=== PATIENT | male | born 1990 | race Caucasian/White ===

== ENCOUNTER 2020-03-09 20:53 | Emergency (ER) | payer OTHER, SELFPAY ==
--- NOTE | 2020-03-09 21:23 | XR_ITS ---
EXAMINATION: XR CHEST CLINICAL INFORMATION: Fever COMPARISON: 04/18/2018 TECHNIQUE: Frontal view of the chest was obtained. FINDINGS: The cardiomediastinal silhouette is within normal limits. The lungs are well expanded. There is no focal consolidation, edema, or effusion. No pneumothorax. No acute osseous abnormality. XR/XR chest 1V IMPRESSION: No evidence of acute pulmonary process.
--- NOTE | 2020-03-09 21:31 | CT_ITS ---
EXAM: NONCONTRAST CT OF THE CHEST; NONCONTRAST CT OF THE ABDOMEN AND PELVIS INDICATION: Fever, cough, upper abdominal pain COMPARISON: Chest CT 06/28/2019 TECHNIQUE: No IV contrast was utilized. Multidetector helical imaging was performed through the chest, abdomen, and pelvis. Coronal and sagittal reformatted images were created at the technologist workstation. DOSE LOWERING TECHNIQUES: This CT examination was performed using dose optimization techniques as appropriate, variously including the following: - Automated exposure control - Adjustment of mA and/or kV according to patient size (this includes techniques or standardized protocols for targeted exams were dose is matched to indication/reason for exam; i.e. extremities or head) - Use of iterative reconstruction technique DLP: 819 mGy-cm FINDINGS: Chest: No regions of consolidation bilaterally. There is trace subsegmental atelectasis bilaterally. No pneumothorax or pleural effusion. The visualized thyroid gland is unremarkable. There are subcentimeter mediastinal lymph nodes within the range of normal variation. Cardiac size is within normal limits; no pericardial effusion. No axillary lymphadenopathy is present. Abdomen/Pelvis: The liver demonstrates hypoattenuation consistent with steatosis. No intrahepatic biliary ductal dilatation. The gallbladder is contracted. The unenhanced spleen, pancreas, and adrenal glands are within normal limits. The unenhanced kidneys are unremarkable without hydronephrosis. Few punctate renal calculi are noted bilaterally. No ureteral calculi identified. The urinary bladder is unremarkable. The prostate and seminal vesicles are unremarkable. The small and large bowel are unremarkable without evidence of obstruction or pericolonic inflammatory change. The appendix is unremarkable. No free fluid or free air is present. The unenhanced vascular structures are unremarkable. No retroperitoneal or pelvic lymphadenopathy is seen. No acute osseous findings. CT/CT abdomen pelvis wo con IMPRESSION: 1. No acute findings identified in the chest, abdomen, or pelvis. 2. Hepatomegaly. 3. Few tiny bilateral renal calculi without hydronephrosis.
[2020-03-09 21:37] VITALS: BP 115/88; PULSE 122; RESP 18; TEMP 38.8; O2SAT 98; BMI 26.4
[2020-03-09] MEDS: Acetaminophen 325 MG TABLET 650 MG PO (21:50)
[2020-03-09 22:00] VITALS: PULSE 95; O2SAT 97
[2020-03-09] MEDS: 0.9 % Sodium Chloride 1,000 ML 999 ML IVCONT (22:08)
[2020-03-09 22:20] LABS: MANUAL DIFF FLAG NO
[2020-03-09 22:21] LABS: Basophils Percent Auto 0.4 % (0-2); Eosinophils Absolute Auto 0.2 X10*3/uL (0.0-0.4); Eosinophils Percent Auto 3.1 % (0-4); Hematocrit 49.3 % (42-52); Imm Gran Abs Auto 0.02 X10*3/uL (0.00-0.03); Imm Gran Pct Auto 0.4 % (0.0-0.4); Lymphocytes Absolute Auto 1.6 X10*3/uL (1.2-4.9); Lymphocytes Percent Auto 30.7 % (20-40); Mean Corpuscular HGB Conc 34.5 g/dl (31.0-36.0); Mean Corpuscular Hemoglobin 28.9 pg (27.0-33.0); Mean Corpuscular Volume 83.7 fL (80-98); Mean Platelet Volume 9.9 fL (9.4-12.4); Monocytes Absolute Auto 0.5 X10*3/uL (0.1-1.2); Monocytes Percent Auto 9.2 % (2-11); Neutrophils Percent Auto 56.2 % (45-73); Platelet Count 165 X10*3/uL (160-400); Red Blood Count 5.89 X10*6/uL (4.60-5.80); White Blood Count 5.2 X10*3/uL (4.8-10.8)
[2020-03-09 22:23] LABS: Glucose Urine UA NEG (NEG); Leukocyte Esterase Urine NEG (NEG); Nitrite Urine NEG (NEG); Specific Gravity - Urine >= 1.030 (1.005-1.025); Urine Blood TRACE (NEG); Urine Ketones NEG (NEG); Urine Protein NEG (NEG-TRACE)
[2020-03-09 22:29] LABS: Appearance Urine CLEAR; Color Urine YELLOW
[2020-03-09] MEDS: cefTRIAXone sodium 1 GM in 0.9 % Sodium Chloride 50 ML IV (22:30)
[2020-03-09 22:33] LABS: Lactic Acid 1.9 mmol/L (0.5-2.0)
[2020-03-09 22:37] LABS: Alanine Aminotransferase 65 U/L (0-40); Albumin Level 4.5 g/dL (3.5-5.0); Alkaline Phosphatase 106 U/L (39-117); Anion Gap 17 (12-20); Aspartate Amino Transferase 56 U/L (5-37); Bilirubin Direct 0.3 mg/dL (0.0-0.5); Bilirubin Total 0.6 mg/dL (0.0-1.0); Blood Urea Nitrogen 8 mg/dL (9-16); C Reactive Protein 4.15 mg/dL (< or = 0.50); Carbon Dioxide 26 mmol/L (22-29); Chloride 101 mmol/L (96-108); Creatinine Clr Calc Pharmacy 94.6; Estimated Glomerular Filt Rate > 60; Glucose Random 99 mg/dL (60-115); Potassium 3.6 mmol/l (3.3-5.1); Sodium 140 mmol/L (135-145); Total Protein 7.8 g/dL (6.5-8.0)
[2020-03-09 22:38] LABS: Bacteria Urine 1+ /LPF; Mucus Urine 1+ /LPF; RBC Urine 0-2 /HPF (0); Squamous Epithelial Cell Urine 1+ /LPF; WBC Urine 0-2 /HPF (0-4)
[2020-03-09 22:49] LABS: Influenza A PCR NEGATIVE (Negative); Influenza B PCR NEGATIVE (Negative); Resp Syncy Virus RNA Qual PCR NEGATIVE (Negative); SARS COV2 PCR INHOUSE NEGATIVE (Negative)
[2020-03-09 23:02] LABS: Erythrocyte Sedimentation Rate 3 MM/HR (0-15)
--- NOTE | 2020-03-09 23:11 | ED_ITS ---
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 Patient was seen at urgent care center and had 3 times COVID test done which were negative in last 1 week but is still not feeling good. Last night patient had fever of 102 degrees F with shaking chills. Patient has slight burning sensation when he urinates, has mild upper abdominal pain no flank pain no other family member is sick at home. Patient denies any rash no shortness of breath MD elicited complaint: fever, malaise and weakness Onset (ago): week(s) (1) Exacerbating factors: nothing Relieving factors: nothing Associated symptoms: chills, myalgias, cough ( mild dry) and abdominal pain ( mild upper abdomen) Treatments prior to arrival fever: acetaminophen Related Data Previous Rx's Medication Instructions Recorded doxycycline hyclate 100 mg PO BID #20 cap 03/10/20 Allergies Allergy/AdvReac Type Severity Reaction Status Date / Time Iodinated Contrast Media Allergy Unknown UNKNOWN Verified 03/09/20 20:56 [IV CONTRAST] Sulfa (Sulfonamide Allergy Unknown DIARRHEA Verified 03/09/20 20:56 Antibiotics) [SULFA (SULFONAMIDE ANTIBIOTICS)] Sulfa Allergy Unknown Unknown Uncoded 03/09/20 20:56 sulfa drugs Allergy Unknown Unknown Uncoded 03/09/20 20:56 Review of Systems Constitutional: Constitutional: Reports body ache(s), Reports chills, Reports fatigue, Reports fever(s), Reports headache(s), Reports lethargy and Reports weakness Eyes: Eyes: Reports irritation ENT: Reports otalgia ( left ear slight pain) and Reports headache(s) Cardiovascular: Cardiovascular: Reports no additional cardiovascular complaints and Denies dyspnea Respiratory: Respiratory: Reports cough ( dry), Denies pain with cough and Denies dyspnea Gastrointestinal: Gastrointestinal: Reports abdominal pain, Denies melena, Denies change in bowel habits and Reports GI cramping Genitourinary: Genitourinary: Denies hematuria and Denies difficulty urinating Musculoskeletal: Musculoskeletal: Reports myalgias Neurologic: Reports system reviewed and no additional complaints, except as documented, Reports headache(s) and Reports weakness Endocrine: Endocrine: Reports fatigue [facility] Past Medical History Medical History Sarcoidosis Social History Social History Alcohol intake: never Smoking Status: Never smoker Smoked in Last 30 Days: No Use of substances other than those prescribed or required for medical reasons: No Advance Directives: No Advance Directives Information Provided: Yes Physical Exam Vital Signs: Vital Signs: Last Vital Signs Temp 99.1 F 03/10/20 02:00 Pulse 95 03/10/20 02:00 Resp 18 03/10/20 02:00 BP 118/69 03/10/20 02:00 Pulse Ox 97 03/10/20 02:00 Body Mass Index 26.4 Const: General: cooperative, healthy appearing, no acute distress, well developed, alert and awake Nutritional Appearance: average body habitus Orientation/consciousness: oriented to person, oriented to place and oriented to time Limitations: no limitations HENMT: Head: Yes normal to inspection Ears: EAC's normal, mastoids normal and TM abnormal erythematous on the left; not bulging, not bullous, not dull, not with effusion, with no fluid behind the TM and with no loss of landmarks Eyes: General: appearance normal, both eyes and all related structures Conjunctivae: conjunctivae normal Sclerae: sclerae normal Neck: Neck: Yes normal visual inspection Thyroid: Thyroid normal Lymphatic: lymphadenopathy ( left preauricular) Resp: Effort & Inspection: normal respiratory effort Auscultation: clear to auscultation bilaterally, no crackles, no rales, no rhonchi and no wheezes Cardio: Palpation: normal PMI Rate: regular rate Rhythm: regular rhythm Heart sounds: S1 normal heart sound present and S2 normal heart sound present GI: Inspection: Yes normal to inspection Palpation (GI): Soft to palpation, Firmness to palpation present (GI), Tenderness to palpation present (GI) in the epigastrum and in the RUQ and no hernias Percussion: Yes normal to percussion Auscultation: normal bowel sounds : General: Yes no CVA tenderness Back/Spine/Pelvis: Back: no CVA tenderness Thoracic/Lumbar Spine: thoracic and lumbar spine normal to inspection Skin: General skin exam: no rashes or lesions noted Neuro: General: oriented to person, oriented to place and oriented to time Motor exam (neuro): 5/5 motor strength present throughout Extrem: General: Yes normal to inspection Course Course Course Narrative: patient with fever of unknown origin detail workup is negative including the COVID-[address] abdomen CT white counts are normal patient did complain of headache did the LP CSF is clear labs are pending. Will send respiratory panel and meningitis panel Procedures Lumbar Puncture Time Out Performed: Yes Patient Position: upright Skin Prep: Povidone-Iodine 1% Local Anesthetic: lidocaine 1% Spinal Needle Gauge: 22G Interspace Used: L3-L4 Fluid Initially Obtained: clear Complications: none MDM - Fever Lab Data Result diagrams: 03/09/20 22:06 03/09/20 22:06 Labs: Lab Results 03/09/20 03/09/20 03/09/20 Range/Units 21:57 21:59 22:06 WBC 5.2 (4.8-10.8) X10*3/uL RBC 5.89 H (4.60-5.80) X10*6/uL Hgb 17.0 (14.0-18.0) g/dl Hct 49.3 (42-52) % MCV 83.7 (80-98) fL MCH 28.9 (27.0-33.0) pg MCHC 34.5 (31.0-36.0) g/dl RDW 13.0 (11.0-16.0) % Plt Count 165 (160-400) X10*3/uL MPV 9.9 (9.4-12.4) fL Immature Gran % (Auto) 0.4 (0.0-0.4) % Neut % (Auto) 56.2 (45-73) % Lymph % (Auto) 30.7 (20-40) % [place] % (Auto) 9.2 (2-11) % Eos % (Auto) 3.1 (0-4) % Baso % (Auto) 0.4 (0-2) % Lymph # (Auto) 1.6 (1.2-4.9) X10*3/uL [place] # (Auto) 0.5 (0.1-1.2) X10*3/uL Eos # (Auto) 0.2 (0.0-0.4) X10*3/uL Baso # (Auto) 0.0 (0.0-0.2) X10*3/uL Abs Immat Gran (auto) 0.02 (0.00-0.03) X10*3/uL Absolute Neuts (auto) 3.0 (2.0-8.3) X10*3/uL Absolute Nucleated RBC 0.000 (0.0-0.012) X10*3/uL Nucleated RBC % (auto) 0.0 (0.0-0.2) /100WBC ESR (0-15) MM/HR Sodium (135-145) mmol/L Potassium (3.3-5.1) mmol/l Chloride (96-108) mmol/L Carbon Dioxide (22-29) mmol/L Anion Gap (12-20) BUN (9-16) mg/dL Creatinine (0.5-1.4) mg/dL Estim Creat Clear Calc Estimated GFR Random Glucose (60-115) mg/dL Lactic Acid (0.5-2.0) mmol/L Calcium (8.4-10.2) mg/dL Total Bilirubin (0.0-1.0) mg/dL Direct Bilirubin (0.0-0.5) mg/dL AST (5-37) U/L ALT (0-40) U/L Alkaline Phosphatase (39-117) U/L C-Reactive Protein (< or = 0.50) mg/dL Total Protein (6.5-8.0) g/dL Albumin (3.5-5.0) g/dL Urine Color YELLOW Urine Appearance CLEAR Urine pH 6.0 (5.0-8.0) Ur Specific [place] >= 1.030 H (1.005-1.025) Urine Protein NEG (NEG-TRACE) MG/DL Urine Glucose (UA) NEG (NEG) MG/DL Urine Ketones NEG (NEG) MG/DL Urine Blood TRACE (NEG) Urine Nitrite NEG (NEG) Ur Leukocyte Esterase NEG (NEG) Urine RBC 0-2 (0) /HPF Urine WBC 0-2 (0-4) /HPF Ur Squamous Epith Cells 1+ /LPF Urine Bacteria 1+ /LPF Urine Mucus 1+ /LPF CSF Tube Number CSF Volume ML CSF Appearance CSF Color CSF WBC MM*3 CSF RBC MM*3 CSF Neutrophils % CSF Lymphocytes % CSF Monocytes % % CSF Other Cells % % CSF Appearance (b) CSF Glucose mg/dL CSF Total Protein (15-45) mg/dL CSF Mening/Enceph PCR Respiratory Panel Jc Adenovirus (Rapid PCR) (Not Detect.) B.pert (TEM-PCR) (Not Detect.) B.parapertussis DNA PCR (Not Detect.) C. pneumoniae DNA (PCR) (Not Detect.) Coronavirus (PCR) NEGATIVE (Negative) Coronavirus OC43 (PCR) (Not Detect.) Coronavirus HKU1 (PCR) (Not Detect.) Coronavirus 229E (PCR) (Not Detect.) Coronavirus NL63 (PCR) (Not Detect.) Human Metapneumovir PCR (Not Detect.) Influenza A (RT-PCR) (Not Detect.) Influenza Type A (PCR) NEGATIVE (Negative) Influenza B (RT-PCR) (Not Detect.) Influenza Type B (PCR) NEGATIVE (Negative) M. pneumoniae (PCR) (Not Detect.) Parainfluenza 1 (PCR) (Not Detect.) Parainfluenza 2 (PCR) (Not Detect.) Parainfluenza 3 (PCR) (Not Detect.) Parainfluenza 4 (PCR) (Not Detect.) RSV (PCR) (Not Detect.) RSV RNA Qual (PCR) NEGATIVE (Negative) Entero/Rhino (PCR) (Not Detect.) SARS-CoV-2 RNA (RT-PCR) (Not Detect.) 03/09/20 03/09/20 03/09/20 Range/Units 22:06 22:06 22:06 WBC (4.8-10.8) X10*3/uL RBC (4.60-5.80) X10*6/uL Hgb (14.0-18.0) g/dl Hct (42-52) % MCV (80-98) fL MCH (27.0-33.0) pg MCHC (31.0-36.0) g/dl RDW (11.0-16.0) % Plt Count (160-400) X10*3/uL MPV (9.4-12.4) fL Immature Gran % (Auto) (0.0-0.4) % Neut % (Auto) (45-73) % Lymph % (Auto) (20-40) % [place] % (Auto) (2-11) % Eos % (Auto) (0-4) % Baso % (Auto) (0-2) % Lymph # (Auto) (1.2-4.9) X10*3/uL [place] # (Auto) (0.1-1.2) X10*3/uL Eos # (Auto) (0.0-0.4) X10*3/uL Baso # (Auto) (0.0-0.2) X10*3/uL Abs Immat Gran (auto) (0.00-0.03) X10*3/uL Absolute Neuts (auto) (2.0-8.3) X10*3/uL Absolute Nucleated RBC (0.0-0.012) X10*3/uL Nucleated RBC % (auto) (0.0-0.2) /100WBC ESR 3 (0-15) MM/HR Sodium 140 (135-145) mmol/L Potassium 3.6 (3.3-5.1) mmol/l Chloride 101 (96-108) mmol/L Carbon Dioxide 26 (22-29) mmol/L Anion Gap 17 (12-20) BUN 8 L (9-16) mg/dL Creatinine 1.12 (0.5-1.4) mg/dL Estim Creat Clear Calc 94.6 Estimated GFR > 60 Random Glucose 99 (60-115) mg/dL Lactic Acid 1.9 (0.5-2.0) mmol/L Calcium 9.0 (8.4-10.2) mg/dL Total Bilirubin 0.6 (0.0-1.0) mg/dL Direct Bilirubin 0.3 (0.0-0.5) mg/dL AST 56 H (5-37) U/L ALT 65 H (0-40) U/L Alkaline Phosphatase 106 (39-117) U/L C-Reactive Protein 4.15 H (< or = 0.50) mg/dL Total Protein 7.8 (6.5-8.0) g/dL Albumin 4.5 (3.5-5.0) g/dL Urine Color Urine Appearance Urine pH (5.0-8.0) Ur Specific [place] (1.005-1.025) Urine Protein (NEG-TRACE) MG/DL Urine Glucose (UA) (NEG) MG/DL Urine Ketones (NEG) MG/DL Urine Blood (NEG) Urine Nitrite (NEG) Ur Leukocyte Esterase (NEG) Urine RBC (0) /HPF Urine WBC (0-4) /HPF Ur Squamous Epith Cells /LPF Urine Bacteria /LPF Urine Mucus /LPF CSF Tube Number CSF Volume ML CSF Appearance CSF Color CSF WBC MM*3 CSF RBC MM*3 CSF Neutrophils % CSF Lymphocytes % CSF Monocytes % % CSF Other Cells % % CSF Appearance (b) CSF Glucose mg/dL CSF Total Protein (15-45) mg/dL CSF Mening/Enceph PCR Respiratory Panel Jc Adenovirus (Rapid PCR) (Not Detect.) B.pert (TEM-PCR) (Not Detect.) B.parapertussis DNA PCR (Not Detect.) C. pneumoniae DNA (PCR) (Not Detect.) Coronavirus (PCR) (Negative) Coronavirus OC43 (PCR) (Not Detect.) Coronavirus HKU1 (PCR) (Not Detect.) Coronavirus 229E (PCR) (Not Detect.) Coronavirus NL63 (PCR) (Not Detect.) Human Metapneumovir PCR (Not Detect.) Influenza A (RT-PCR) (Not Detect.) Influenza Type A (PCR) (Negative) Influenza B (RT-PCR) (Not Detect.) Influenza Type B (PCR) (Negative) M. pneumoniae (PCR) (Not Detect.) Parainfluenza 1 (PCR) (Not Detect.) Parainfluenza 2 (PCR) (Not Detect.) Parainfluenza 3 (PCR) (Not Detect.) Parainfluenza 4 (PCR) (Not Detect.) RSV (PCR) (Not Detect.) RSV RNA Qual (PCR) (Negative) Entero/Rhino (PCR) (Not Detect.) SARS-CoV-2 RNA (RT-PCR) (Not Detect.) 03/10/20 03/10/20 03/10/20 Range/Units 00:16 00:16 00:16 WBC (4.8-10.8) X10*3/uL RBC (4.60-5.80) X10*6/uL Hgb (14.0-18.0) g/dl Hct (42-52) % MCV (80-98) fL MCH (27.0-33.0) pg MCHC (31.0-36.0) g/dl RDW (11.0-16.0) % Plt Count (160-400) X10*3/uL MPV (9.4-12.4) fL Immature Gran % (Auto) (0.0-0.4) % Neut % (Auto) (45-73) % Lymph % (Auto) (20-40) % [place] % (Auto) (2-11) % Eos % (Auto) (0-4) % Baso % (Auto) (0-2) % Lymph # (Auto) (1.2-4.9) X10*3/uL [place] # (Auto) (0.1-1.2) X10*3/uL Eos # (Auto) (0.0-0.4) X10*3/uL Baso # (Auto) (0.0-0.2) X10*3/uL Abs Immat Gran (auto) (0.00-0.03) X10*3/uL Absolute Neuts (auto) (2.0-8.3) X10*3/uL Absolute Nucleated RBC (0.0-0.012) X10*3/uL Nucleated RBC % (auto) (0.0-0.2) /100WBC ESR (0-15) MM/HR Sodium (135-145) mmol/L Potassium (3.3-5.1) mmol/l Chloride (96-108) mmol/L Carbon Dioxide (22-29) mmol/L Anion Gap (12-20) BUN (9-16) mg/dL Creatinine (0.5-1.4) mg/dL Estim Creat Clear Calc Estimated GFR Random Glucose (60-115) mg/dL Lactic Acid (0.5-2.0) mmol/L Calcium (8.4-10.2) mg/dL Total Bilirubin (0.0-1.0) mg/dL Direct Bilirubin (0.0-0.5) mg/dL AST (5-37) U/L ALT (0-40) U/L Alkaline Phosphatase (39-117) U/L C-Reactive Protein (< or = 0.50) mg/dL Total Protein (6.5-8.0) g/dL Albumin (3.5-5.0) g/dL Urine Color Urine Appearance Urine pH (5.0-8.0) Ur Specific [place] (1.005-1.025) Urine Protein (NEG-TRACE) MG/DL Urine Glucose (UA) (NEG) MG/DL Urine Ketones (NEG) MG/DL Urine Blood (NEG) Urine Nitrite (NEG) Ur Leukocyte Esterase (NEG) Urine RBC (0) /HPF Urine WBC (0-4) /HPF Ur Squamous Epith Cells /LPF Urine Bacteria /LPF Urine Mucus /LPF CSF Tube Number 2 1 4 CSF Volume 0.8 0.8 ML CSF Appearance HAZY CLEAR CSF Color COLORLESS COLORLESS CSF WBC 6 4 MM*3 CSF RBC 1475 21 MM*3 CSF Neutrophils 16 7 % CSF Lymphocytes 56 60 % CSF Monocytes % 20 20 % CSF Other Cells % 8 13 % CSF Appearance (b) Clear, Colorless CSF Glucose 64 mg/dL CSF Total Protein 32.7 (15-45) mg/dL CSF Mening/Enceph PCR Cancelled Respiratory Panel Jc Adenovirus (Rapid PCR) (Not Detect.) B.pert (TEM-PCR) (Not Detect.) B.parapertussis DNA PCR (Not Detect.) C. pneumoniae DNA (PCR) (Not Detect.) Coronavirus (PCR) (Negative) Coronavirus OC43 (PCR) (Not Detect.) Coronavirus HKU1 (PCR) (Not Detect.) Coronavirus 229E (PCR) (Not Detect.) Coronavirus NL63 (PCR) (Not Detect.) Human Metapneumovir PCR (Not Detect.) Influenza A (RT-PCR) (Not Detect.) Influenza Type A (PCR) (Negative) Influenza B (RT-PCR) (Not Detect.) Influenza Type B (PCR) (Negative) M. pneumoniae (PCR) (Not Detect.) Parainfluenza 1 (PCR) (Not Detect.) Parainfluenza 2 (PCR) (Not Detect.) Parainfluenza 3 (PCR) (Not Detect.) Parainfluenza 4 (PCR) (Not Detect.) RSV (PCR) (Not Detect.) RSV RNA Qual (PCR) (Negative) Entero/Rhino (PCR) (Not Detect.) SARS-CoV-2 RNA (RT-PCR) (Not Detect.) 03/10/20 03/10/20 Range/Units 00:16 01:41 WBC (4.8-10.8) X10*3/uL RBC (4.60-5.80) X10*6/uL Hgb (14.0-18.0) g/dl Hct (42-52) % MCV (80-98) fL MCH (27.0-33.0) pg MCHC (31.0-36.0) g/dl RDW (11.0-16.0) % Plt Count (160-400) X10*3/uL MPV (9.4-12.4) fL Immature Gran % (Auto) (0.0-0.4) % Neut % (Auto) (45-73) % Lymph % (Auto) (20-40) % [place] % (Auto) (2-11) % Eos % (Auto) (0-4) % Baso % (Auto) (0-2) % Lymph # (Auto) (1.2-4.9) X10*3/uL [place] # (Auto) (0.1-1.2) X10*3/uL Eos # (Auto) (0.0-0.4) X10*3/uL Baso # (Auto) (0.0-0.2) X10*3/uL Abs Immat Gran (auto) (0.00-0.03) X10*3/uL Absolute Neuts (auto) (2.0-8.3) X10*3/uL Absolute Nucleated RBC (0.0-0.012) X10*3/uL Nucleated RBC % (auto) (0.0-0.2) /100WBC ESR (0-15) MM/HR Sodium (135-145) mmol/L Potassium (3.3-5.1) mmol/l Chloride (96-108) mmol/L Carbon Dioxide (22-29) mmol/L Anion Gap (12-20) BUN (9-16) mg/dL Creatinine (0.5-1.4) mg/dL Estim Creat Clear Calc Estimated GFR Random Glucose (60-115) mg/dL Lactic Acid (0.5-2.0) mmol/L Calcium (8.4-10.2) mg/dL Total Bilirubin (0.0-1.0) mg/dL Direct Bilirubin (0.0-0.5) mg/dL AST (5-37) U/L ALT (0-40) U/L Alkaline Phosphatase (39-117) U/L C-Reactive Protein (< or = 0.50) mg/dL Total Protein (6.5-8.0) g/dL Albumin (3.5-5.0) g/dL Urine Color Urine Appearance Urine pH (5.0-8.0) Ur Specific [place] (1.005-1.025) Urine Protein (NEG-TRACE) MG/DL Urine Glucose (UA) (NEG) MG/DL Urine Ketones (NEG) MG/DL Urine Blood (NEG) Urine Nitrite (NEG) Ur Leukocyte Esterase (NEG) Urine RBC (0) /HPF Urine WBC (0-4) /HPF Ur Squamous Epith Cells /LPF Urine Bacteria /LPF Urine Mucus /LPF CSF Tube Number CSF Volume ML CSF Appearance CSF Color CSF WBC MM*3 CSF RBC MM*3 CSF Neutrophils % CSF Lymphocytes % CSF Monocytes % % CSF Other Cells % % CSF Appearance (b) CSF Glucose mg/dL CSF Total Protein (15-45) mg/dL CSF Mening/Enceph PCR SEE COMMENTS Respiratory Panel Jc See Note Adenovirus (Rapid PCR) Not Detected (Not Detect.) B.pert (TEM-PCR) Not Detected (Not Detect.) B.parapertussis DNA PCR Not Detected (Not Detect.) C. pneumoniae DNA (PCR) Not Detected (Not Detect.) Coronavirus (PCR) (Negative) Coronavirus OC43 (PCR) Not Detected (Not Detect.) Coronavirus HKU1 (PCR) Not Detected (Not Detect.) Coronavirus 229E (PCR) Not Detected (Not Detect.) Coronavirus NL63 (PCR) Not Detected (Not Detect.) Human Metapneumovir PCR Not Detected (Not Detect.) Influenza A (RT-PCR) Not Detected (Not Detect.) Influenza Type A (PCR) (Negative) Influenza B (RT-PCR) Not Detected (Not Detect.) Influenza Type B (PCR) (Negative) M. pneumoniae (PCR) Not Detected (Not Detect.) Parainfluenza 1 (PCR) Not Detected (Not Detect.) Parainfluenza 2 (PCR) Not Detected (Not Detect.) Parainfluenza 3 (PCR) Not Detected (Not Detect.) Parainfluenza 4 (PCR) Not Detected (Not Detect.) RSV (PCR) Not Detected (Not Detect.) RSV RNA Qual (PCR) (Negative) Entero/Rhino (PCR) Not Detected (Not Detect.) SARS-CoV-2 RNA (RT-PCR) Not Detected (Not Detect.) Discharge Plan Discharge Clinical Impression: Upper respiratory infection, Fever of unknown origin Patient Disposition: Home, Self-Care Instructions: Fever in Adults (ED) Additional Instructions: etiology of fever is not very clear detail workup is done labs are pending for now start on doxycycline and follow the labs continue Tylenol/Motrin for fever Prescriptions: New doxycycline hyclate 100 mg capsule 100 mg PO BID Qty: 20 RF: 0 Interventions: ED Discharge Assessment Last Done: 03/10/20 05:35 Discharge Date/Time: 03/10/20 02:40
[2020-03-09 23:19] VITALS: TEMP 38.1
[2020-03-10] VITALS: BP 113/77; PULSE 97; RESP 18; TEMP 37.4; O2SAT 96
[2020-03-10] MEDS: Ketorolac Tromethamine 30 MG/ML VIAL IVPUSH (00:31)
[2020-03-10] MEDS: 0.9 % Sodium Chloride 1,000 ML 999 ML IVCONT (00:32)
[2020-03-10 00:41] LABS: CSF Appearance Clear, Colorless; CSF Tube # 2
[2020-03-10 00:54] LABS: Glucose CSF 64 mg/dL; Total Protein CSF 32.7 mg/dL (15-45)
[2020-03-10 01:26] LABS: Appearance CSF HAZY; CSF Tube # 1; CSF Volume 0.8 ML
[2020-03-10 01:27] LABS: Appearance CSF CLEAR; CSF Tube # 4; Color CSF COLORLESS; Red Blood Cell CSF 1475 MM*3; White Blood Cell CSF 6 MM*3
[2020-03-10 01:28] LABS: CSF Volume 0.8 ML; Color CSF COLORLESS; Red Blood Cell CSF 21 MM*3; White Blood Cell CSF 4 MM*3
[2020-03-10 01:33] LABS: CSF Monos 20 %; CSF Other Cells % 8 %; Lymphocytes CSF 56 %; Neutrophils CSF 16 %
[2020-03-10 01:37] LABS: CSF Monos 20 %; CSF Other Cells % 13 %; Lymphocytes CSF 60 %; Neutrophils CSF 7 %
[2020-03-10 02:00] VITALS: BP 118/69; PULSE 95; RESP 18; TEMP 37.3; O2SAT 97
[2020-03-10 06:39] LABS: Adenovirus PCR Not Detected (Not Detect.); Bordetella parapertussis PCR Not Detected (Not Detect.); Bordetella pertussis PCR Not Detected (Not Detect.); Chlamydia pneumoniae PCR Not Detected (Not Detect.); Coronavirus 229E PCR Not Detected (Not Detect.); Coronavirus HKU1 PCR Not Detected (Not Detect.); Coronavirus NL63 PCR Not Detected (Not Detect.); Coronavirus OC43 PCR Not Detected (Not Detect.); Human metapneumovirus PCR Not Detected (Not Detect.); Influenza A PCR Not Detected (Not Detect.); Influenza B PCR Not Detected (Not Detect.); Mycoplasma pneumoniae PCR Not Detected (Not Detect.); Parainfluenza 1 PCR Not Detected (Not Detect.); Parainfluenza 2 PCR Not Detected (Not Detect.); Parainfluenza 3 PCR Not Detected (Not Detect.); Parainfluenza 4 PCR Not Detected (Not Detect.); RSV PCR Not Detected (Not Detect.); Rhino/Enterovirus PCR Not Detected (Not Detect.); SARS-CoV-2 PCR Not Detected (Not Detect.)
[2020-03-10 15:23] LABS: Meningitis Encephalitis CSF SEE COMMENTS
[2020-03-11 13:12] LABS: Lyme Abs Screen <0.90 index
[2020-03-12 13:08] LABS: A. Phagocytophilum Ab IgG <1:64 (<1:64); A. Phagocytophilum Ab IgM <1:20 (<1:20); E. Chaffeensis Ab IgG <1:64 (<1:64); E. Chaffeensis Ab IgM <1:20 (<1:20)
[2020-03-13 17:06] LABS: Legionella Pneumophila Ab IgM <1:256
== END 2020-03-10 02:40 | disposition home or self-care (01) ==
PROVIDERS: Emergency Provider Internal Medicine
DX: J06.9 Acute upper respiratory infection, unspecified (principal); D86.9 Sarcoidosis, unspecified; R50.9 Fever, unspecified; M79.10 Myalgia, unspecified site; Z20.828 Contact with and (suspected) exposure to other viral communicable diseases; Z79.899 Other long term (current) drug therapy
CPT/HCPCS: 0241U; 36415; 62270; 71045; 71250; 74176; 80048; 80076; 81001; 82945; 83605; 84157; 85025; 85652; 86140; 86618; 86666; 86713; 87015; 87040; 87070; 87205; 87633; 89051; 96361; 96365; 96375; 99285; J0696; J1885

== ENCOUNTER 2020-03-18 07:56 | Emergency (ER) | payer OTHER, SELFPAY ==
--- NOTE | 2020-03-18 07:58 | ED_ITS ---
HPI - Fever General Chief Complaint: Fever Stated Complaint: fever Time Seen by Provider: 03/18/20 07:58 Source: patient Mode of arrival: ambulatory Limitations: no limitations History of Present Illness HPI Narrative: patient with history of stable sarcoidosis works as a dentist came here on 03/09 for fever of 5 days duration patient had repeated 3 times COVID testing done that time which were negative since then patient is on doxycycline blood workup spinal tap blood cultures everything was normal including CT scan of the chest and abdomen for last 10 days patient still having fever almost every day reaching to 101.8 in the nighttime with chills patient is still complaining of pain in the lower back no dysuria at this time no shortness of breath no cough patient has not travel any other place no one at home is sick patient denies any joint pain no skin rash no risk for sexual transmitted disease patient is chronically constipated and denies any significant rectal pain when he moves his bowel MD elicited complaint: fever and malaise Related Data Previous Rx's Medication Instructions Recorded doxycycline hyclate 100 mg PO BID #20 cap 03/10/20 ciprofloxacin HCl [Cipro] 500 mg PO BID #20 tab 03/18/20 doxycycline hyclate 100 mg PO BID #20 cap 03/18/20 Allergies Allergy/AdvReac Type Severity Reaction Status Date / Time Sulfa (Sulfonamide Allergy Unknown DIARRHEA Verified 03/09/20 20:56 Antibiotics) [SULFA (SULFONAMIDE ANTIBIOTICS)] Iodinated Contrast Media AdvReac Unknown stomach Verified 03/18/20 09:24 [IV CONTRAST] upset Sulfa Allergy Unknown Unknown Uncoded 03/09/20 20:56 sulfa drugs Allergy Unknown Unknown Uncoded 03/09/20 20:56 Review of Systems Review of Systems: REVIEW OF SYSTEMS: Pertinent positives and negatives are stated above in the history. GEN: no weight loss HEENT: no nasal congestion, sore throat, ear pain NEURO: no headache, dizziness, focal weakness PULM: no cough, shortness of breath CV: no chest pain, palpitations, LE edema ABD: no abdominal pain, nausea, vomiting, diarrhea : no dysuria, urgency, frequency SKIN: no rash ROS otherwise negative x 10 PMFSH Past Medical History Medical History Sarcoidosis Social History Social History Alcohol intake: never Smoking Status: Never smoker Use of substances other than those prescribed or required for medical reasons: No Advance Directives: No Advance Directives Information Provided: Yes Physical Exam Vital Signs: Vital Signs: Last Vital Signs Temp 98.3 F 03/18/20 10:45 Pulse 78 03/18/20 10:45 Resp 16 03/18/20 10:45 BP 112/76 03/18/20 10:45 Pulse Ox 97 03/18/20 10:45 Body Mass Index 26.4 Appearance: Alert. Oriented X3. No acute distress. Eyes: Pupils equal, round and reactive to light. ENT: Pharynx normal. Neck: Normal inspection. Neck supple. CVS: Normal heart rate and rhythm. Pulses normal. Respiratory: No respiratory distress. Breath sounds normal. Abdomen: Soft and nontender. noHepato splenomegaly no cva tenderness diffuse t enderness in the lumbar area Skin: Skin warm and dry. Normal skin color. Normal skin turgor. Extremities: No lower extremity edema. Good range of movement Neuro: Oriented X 3. No motor deficit. No sensory deficit. MDM - Fever MDM Narrative Medical decision making narrative: patient with low-grade fever for last 2 weeks etiology not very clear detailed workup again today is negative for any acute pathology infectious 1st process. On rectal examination patient has tenderness in the prostate but ultrasound and CT scan is negative for any fluid collection or prostatitis. Patient does have a history of prostatitis In past which id=s not clear as he ws given doxycycline. case discussed Dr. Bekah Cazares infectious disease doctor advised to continue doxycycline for another 2 weeks will give him Cipro for possible prostatitis and advised to follow-up with infectious disease doctor/ tertiary center for further evaluation Differential Diagnosis Differential diagnosis: Likely fever of unknown origin Medical Records Attestation: I reviewed the patient's medical records. Lab Data Attestation: I reviewed the patient's lab results. Result diagrams: 03/18/20 08:33 03/18/20 08:33 Labs: Lab Results 03/18/20 03/18/20 03/18/20 Range/Units 08:33 08:33 08:33 WBC 5.0 (4.8-10.8) X10*3/uL RBC 5.43 (4.60-5.80) X10*6/uL Hgb 15.8 (14.0-18.0) g/dl Hct 46.2 (42-52) % MCV 85.1 (80-98) fL MCH 29.1 (27.0-33.0) pg MCHC 34.2 (31.0-36.0) g/dl RDW 13.2 (11.0-16.0) % Plt Count 200 (160-400) X10*3/uL MPV 9.0 L (9.4-12.4) fL Immature Gran % (Auto) 0.4 (0.0-0.4) % Neut % (Auto) 52.0 (45-73) % Lymph % (Auto) 33.3 (20-40) % [place] % (Auto) 9.3 (2-11) % Eos % (Auto) 4.6 H (0-4) % Baso % (Auto) 0.4 (0-2) % Lymph # (Auto) 1.7 (1.2-4.9) X10*3/uL [place] # (Auto) 0.5 (0.1-1.2) X10*3/uL Eos # (Auto) 0.2 (0.0-0.4) X10*3/uL Baso # (Auto) 0.0 (0.0-0.2) X10*3/uL Abs Immat Gran (auto) 0.02 (0.00-0.03) X10*3/uL Absolute Neuts (auto) 2.6 (2.0-8.3) X10*3/uL Absolute Nucleated RBC 0.000 (0.0-0.012) X10*3/uL Nucleated RBC % (auto) 0.0 (0.0-0.2) /100WBC ESR (0-15) MM/HR Sodium 142 (135-145) mmol/L Potassium 4.0 (3.3-5.1) mmol/l Chloride 106 (96-108) mmol/L Carbon Dioxide 26 (22-29) mmol/L Anion Gap 14 (12-20) BUN 9 (9-16) mg/dL Creatinine 0.96 (0.5-1.4) mg/dL Estim Creat Clear Calc 110.4 Estimated GFR > 60 Random Glucose 101 (60-115) mg/dL Lactic Acid 1.2 (0.5-2.0) mmol/L Calcium 8.5 (8.4-10.2) mg/dL Ferritin 197 (20-250) ng/mL Total Bilirubin 0.6 (0.0-1.0) mg/dL AST 37 (5-37) U/L ALT 60 H (0-40) U/L Alkaline Phosphatase 106 (39-117) U/L Lactate Dehydrogenase 309 H (118-273) U/L C-Reactive Protein 2.76 H (< or = 0.50) mg/dL Total Protein 7.2 (6.5-8.0) g/dL Albumin 4.0 (3.5-5.0) g/dL Urine Color Urine Appearance Urine pH (5.0-8.0) Ur Specific [place] (1.005-1.025) Urine Protein (NEG-TRACE) MG/DL Urine Glucose (UA) (NEG) MG/DL Urine Ketones (NEG) MG/DL Urine Blood (NEG) Urine Nitrite (NEG) Ur Leukocyte Esterase (NEG) Hep Bs Antigen (Negative) Hep Bs Antibody (Nonreactive) Hep B Core Total Ab (Nonreactive) Hepatitis C Ab (EIA) (Nonreactive) HIV 1&2 Ab/P24 Ag 4thGn (Nonreactive) 03/18/20 03/18/20 03/18/20 Range/Units 08:33 08:33 08:33 WBC (4.8-10.8) X10*3/uL RBC (4.60-5.80) X10*6/uL Hgb (14.0-18.0) g/dl Hct (42-52) % MCV (80-98) fL MCH (27.0-33.0) pg MCHC (31.0-36.0) g/dl RDW (11.0-16.0) % Plt Count (160-400) X10*3/uL MPV (9.4-12.4) fL Immature Gran % (Auto) (0.0-0.4) % Neut % (Auto) (45-73) % Lymph % (Auto) (20-40) % [place] % (Auto) (2-11) % Eos % (Auto) (0-4) % Baso % (Auto) (0-2) % Lymph # (Auto) (1.2-4.9) X10*3/uL [place] # (Auto) (0.1-1.2) X10*3/uL Eos # (Auto) (0.0-0.4) X10*3/uL Baso # (Auto) (0.0-0.2) X10*3/uL Abs Immat Gran (auto) (0.00-0.03) X10*3/uL Absolute Neuts (auto) (2.0-8.3) X10*3/uL Absolute Nucleated RBC (0.0-0.012) X10*3/uL Nucleated RBC % (auto) (0.0-0.2) /100WBC ESR 7 (0-15) MM/HR Sodium (135-145) mmol/L Potassium (3.3-5.1) mmol/l Chloride (96-108) mmol/L Carbon Dioxide (22-29) mmol/L Anion Gap (12-20) BUN (9-16) mg/dL Creatinine (0.5-1.4) mg/dL Estim Creat Clear Calc Estimated GFR Random Glucose (60-115) mg/dL Lactic Acid (0.5-2.0) mmol/L Calcium (8.4-10.2) mg/dL Ferritin (20-250) ng/mL Total Bilirubin (0.0-1.0) mg/dL AST (5-37) U/L ALT (0-40) U/L Alkaline Phosphatase (39-117) U/L Lactate Dehydrogenase (118-273) U/L C-Reactive Protein (< or = 0.50) mg/dL Total Protein (6.5-8.0) g/dL Albumin (3.5-5.0) g/dL Urine Color Urine Appearance Urine pH (5.0-8.0) Ur Specific [place] (1.005-1.025) Urine Protein (NEG-TRACE) MG/DL Urine Glucose (UA) (NEG) MG/DL Urine Ketones (NEG) MG/DL Urine Blood (NEG) Urine Nitrite (NEG) Ur Leukocyte Esterase (NEG) Hep Bs Antigen Negative (Negative) Hep Bs Antibody REACTIVE (Nonreactive) Hep B Core Total Ab Nonreactive (Nonreactive) Hepatitis C Ab (EIA) Nonreactive (Nonreactive) HIV 1&2 Ab/P24 Ag 4thGn Nonreactive (Nonreactive) 03/18/20 Range/Units 10:53 WBC (4.8-10.8) X10*3/uL RBC (4.60-5.80) X10*6/uL Hgb (14.0-18.0) g/dl Hct (42-52) % MCV (80-98) fL MCH (27.0-33.0) pg MCHC (31.0-36.0) g/dl RDW (11.0-16.0) % Plt Count (160-400) X10*3/uL MPV (9.4-12.4) fL Immature Gran % (Auto) (0.0-0.4) % Neut % (Auto) (45-73) % Lymph % (Auto) (20-40) % [place] % (Auto) (2-11) % Eos % (Auto) (0-4) % Baso % (Auto) (0-2) % Lymph # (Auto) (1.2-4.9) X10*3/uL [place] # (Auto) (0.1-1.2) X10*3/uL Eos # (Auto) (0.0-0.4) X10*3/uL Baso # (Auto) (0.0-0.2) X10*3/uL Abs Immat Gran (auto) (0.00-0.03) X10*3/uL Absolute Neuts (auto) (2.0-8.3) X10*3/uL Absolute Nucleated RBC (0.0-0.012) X10*3/uL Nucleated RBC % (auto) (0.0-0.2) /100WBC ESR (0-15) MM/HR Sodium (135-145) mmol/L Potassium (3.3-5.1) mmol/l Chloride (96-108) mmol/L Carbon Dioxide (22-29) mmol/L Anion Gap (12-20) BUN (9-16) mg/dL Creatinine (0.5-1.4) mg/dL Estim Creat Clear Calc Estimated GFR Random Glucose (60-115) mg/dL Lactic Acid (0.5-2.0) mmol/L Calcium (8.4-10.2) mg/dL Ferritin (20-250) ng/mL Total Bilirubin (0.0-1.0) mg/dL AST (5-37) U/L ALT (0-40) U/L Alkaline Phosphatase (39-117) U/L Lactate Dehydrogenase (118-273) U/L C-Reactive Protein (< or = 0.50) mg/dL Total Protein (6.5-8.0) g/dL Albumin (3.5-5.0) g/dL Urine Color YELLOW Urine Appearance CLEAR Urine pH 6.0 (5.0-8.0) Ur Specific [place] 1.020 (1.005-1.025) Urine Protein NEG (NEG-TRACE) MG/DL Urine Glucose (UA) NEG (NEG) MG/DL Urine Ketones NEG (NEG) MG/DL Urine Blood NEG (NEG) Urine Nitrite NEG (NEG) Ur Leukocyte Esterase NEG (NEG) Hep Bs Antigen (Negative) Hep Bs Antibody (Nonreactive) Hep B Core Total Ab (Nonreactive) Hepatitis C Ab (EIA) (Nonreactive) HIV 1&2 Ab/P24 Ag 4thGn (Nonreactive) Discharge Plan Discharge Clinical Impression: Fever of unknown origin Patient Disposition: Home, Self-Care Instructions: Fever in Adults (ED) Additional Instructions: Tylenol/Motrin for fever, cause of fever is not very clear Take antibiotics as prescribed. total duration of doxycycline is 21 days, and for Cipro is 3 weeks Follow-up with Infectious Diseases MD/ tertiary center for further workup Prescriptions: New ciprofloxacin HCl [Cipro] 500 mg tablet 500 mg PO BID Qty: 20 RF: 0 doxycycline hyclate 100 mg capsule 100 mg PO BID Qty: 20 RF: 0 No Action doxycycline hyclate 100 mg capsule 100 mg PO BID Qty: 20 RF: 0
[2020-03-18 08:06] VITALS: BP 118/84; PULSE 90; RESP 16; TEMP 36.9; O2SAT 98; BMI 26.4
--- NOTE | 2020-03-18 08:24 | US_ITS ---
EXAMINATION: US PELVIS LIMITED (BLADDER) CLINICAL INFORMATION: Clinical suspicion for prostatitis. COMPARISON: CT abdomen and pelvis 03/09/2020 TECHNIQUE: Real-time imaging of the bladder. Grayscale imaging and color Doppler are performed. FINDINGS: The bladder is distended symmetrically and shows no focal wall thickening or bladder diverticulum. There is no bladder calculus or debris. Bilateral ureteral jets are present at the bladder base. Prevoid bladder volume 353 mL. Post void bladder residual volume 14 mL. The prostate is within normal size measuring 3.7 x 3.3 x 3.5 cm (volume 22 mL). No pelvic ascites. US/US bladder IMPRESSION: 1. No bladder wall thickening or debris at bladder base. 2. Small bladder residual volume 14 mL. 3. Prostate normal in size, volume 22 mL.
[2020-03-18] MEDS: 0.9 % Sodium Chloride 1,000 ML 999 ML IVCONT (09:03)
[2020-03-18 09:10] LABS: MANUAL DIFF FLAG NO
[2020-03-18 09:12] LABS: Basophils Percent Auto 0.4 % (0-2); Eosinophils Absolute Auto 0.2 X10*3/uL (0.0-0.4); Eosinophils Percent Auto 4.6 % (0-4); Hematocrit 46.2 % (42-52); Hemoglobin 15.8 g/dl (14.0-18.0); Imm Gran Abs Auto 0.02 X10*3/uL (0.00-0.03); Imm Gran Pct Auto 0.4 % (0.0-0.4); Lymphocytes Absolute Auto 1.7 X10*3/uL (1.2-4.9); Lymphocytes Percent Auto 33.3 % (20-40); Mean Corpuscular HGB Conc 34.2 g/dl (31.0-36.0); Mean Corpuscular Hemoglobin 29.1 pg (27.0-33.0); Mean Corpuscular Volume 85.1 fL (80-98); Monocytes Absolute Auto 0.5 X10*3/uL (0.1-1.2); Monocytes Percent Auto 9.3 % (2-11); Neutrophils Absolute Auto 2.6 X10*3/uL (2.0-8.3); Platelet Count 200 X10*3/uL (160-400); Red Blood Count 5.43 X10*6/uL (4.60-5.80); Red Cell Distribution Width 13.2 % (11.0-16.0)
[2020-03-18 09:35] VITALS: BP 119/81; PULSE 91; RESP 17; TEMP 36.9
[2020-03-18 09:40] LABS: Lactic Acid 1.2 mmol/L (0.5-2.0)
[2020-03-18 10:00] LABS: Erythrocyte Sedimentation Rate 7 MM/HR (0-15)
[2020-03-18 10:06] LABS: HBsAGNum1 0.26 S/CO (0.00-0.99); Hepatitis B Core Antibody Nonreactive (Nonreactive); Hepatitis B Surface Antigen Negative (Negative); ~HepC Num1 0.24 S/CO (0.00-0.79); ~Hepatitis B Surface Antibody REACTIVE (Nonreactive); ~Hepatitis C Antibody Nonreactive (Nonreactive)
[2020-03-18 10:07] LABS: Alanine Aminotransferase 60 U/L (0-40); Alkaline Phosphatase 106 U/L (39-117); Anion Gap 14 (12-20); Aspartate Amino Transferase 37 U/L (5-37); Bilirubin Total 0.6 mg/dL (0.0-1.0); Blood Urea Nitrogen 9 mg/dL (9-16); C Reactive Protein 2.76 mg/dL (< or = 0.50); Calcium 8.5 mg/dL (8.4-10.2); Carbon Dioxide 26 mmol/L (22-29); Chloride 106 mmol/L (96-108); Creatinine Clr Calc Pharmacy 110.4; Estimated Glomerular Filt Rate > 60; Glucose Random 101 mg/dL (60-115); HIV AB/AG Nonreactive (Nonreactive); HIV Num 1 0.13 S/CO (0.00-0.99); Lactate Dehydrogenase 309 U/L (118-273); Sodium 142 mmol/L (135-145); Total Protein 7.2 g/dL (6.5-8.0)
[2020-03-18 10:27] LABS: Ferritin 197 ng/mL (20-250)
--- NOTE | 2020-03-18 10:34 | CT_ITS ---
EXAMINATION: CT CHEST, ABDOMEN AND PELVIS WITH CONTRAST. CLINICAL INFORMATION: Lower back pain, fever. COMPARISON: None TECHNIQUE: 5 mm thin axial and reformatted 3 mm thin sagittal and coronal images of abdomen and pelvis were obtained following IV 100 mL Omnipaque 350. DLP 791 FINDINGS: CHEST: Both lungs are fairly well-expanded and clear of acute pneumonic process. The heart size and the great vessels are normal caliber. The thyroid lobes are symmetrical and normal. The central trachea and the bronchi widely patent. A 1.2 cm right hilar lymph node axial image 24/10 is noted. No additional lymph nodes or mass seen. There is no pleural effusion. There is no pleural effusion, thickening or calcification. The axilla and the chest wall is unremarkable. ABDOMEN AND PELVIS: The liver is diffusely attenuated but otherwise normal size shape and position. No intrahepatic ductal dilatation or focal mass seen. Visualized spleen, pancreas and bilateral adrenal glands are unremarkable. Both kidneys are normal size, shape and position. No radiopaque renal calculi, enhancing renal mass mass or hydronephrosis seen. There are no radiopaque gallstones or wall thickening. The abdominal aorta is normal caliber. No retroperitoneal lymph nodes seen. The appendix is normal caliber. Visualized small bowel loops and colon appears unremarkable. Imaging through the pelvis reveals unremarkable bladder. The prostate gland is normal. Periprostatic fat planes are preserved. There are small scattered lymph nodes in the lateral region. Bone windows reveal no lytic or sclerotic process in the thoracic, lumbar or sacral spine. The paravertebral soft tissues are normal. The spinal canal appears patent throughout the spine CT/CT abdomen pelvis w con IMPRESSION: Unremarkable CT chest, abdomen and pelvis exam. Especially no abnormality seen involving thoracic, lumbar and sacral spine.
[2020-03-18 10:45] VITALS: BP 112/76; PULSE 78; RESP 16; TEMP 36.8; O2SAT 97
[2020-03-18] MEDS: diphenhydrAMINE HCL 50 MG/ML VIAL 25 MG IVPUSH (10:47)
[2020-03-18] MEDS: methylPREDNISolone Sod Succ/PF 125 MG/2 ML VIAL IVPUSH (10:48)
[2020-03-18 11:02] LABS: Glucose Urine UA NEG (NEG); Leukocyte Esterase Urine NEG (NEG); Nitrite Urine NEG (NEG); Urine Blood NEG (NEG); Urine Ketones NEG (NEG); Urine Protein NEG (NEG-TRACE)
[2020-03-18 11:03] LABS: Appearance Urine CLEAR; Color Urine YELLOW
[2020-03-18] MEDS: levoFLOXacin/D5W 500 MG/100 ML PIGGYBACK 100 MG IV (11:23)
[2020-03-18] MEDS: iohexoL 350 MG/ML 100 ML INFUS..BTL IV (11:25)
[2020-03-18 12:35] VITALS: BP 117/83; PULSE 94; RESP 16; TEMP 36.8; O2SAT 99
[2020-03-18 14:03] LABS: CT PCR NOT DETECTED (Not Detect.); NG PCR NOT DETECTED (Not Detect.)
[2020-03-20 12:58] LABS: Anti Nuclear Antibody Screen NEGATIVE (NEGATIVE)
[2020-03-26 10:28] LABS: Angiotensin Converting Enzyme 68 U/L (9-67)
== END 2020-03-18 12:40 | disposition home or self-care (01) ==
PROVIDERS: Emergency Provider Internal Medicine; PCP Internal Medicine
DX: R50.9 Fever, unspecified (principal); D86.9 Sarcoidosis, unspecified; K59.00 Constipation, unspecified; Z79.899 Other long term (current) drug therapy; Z20.828 Contact with and (suspected) exposure to other viral communicable diseases; Z20.2 Contact with and (suspected) exposure to infections with a predominantly sexual mode of transmission
CPT/HCPCS: 36415; 71260; 74177; 76857; 80053; 81003; 82164; 82728; 83605; 83615; 85025; 85652; 86038; 86039; 86140; 86704; 86706; 86803; 87040; 87340; 87389; 87491; 87591; 96365; 96375; 99284; J1200; J1956; J2930; Q9967

== ENCOUNTER 2020-07-09 23:16 | Outpatient (REF) | payer BC, SELFPAY ==
[2020-07-10 00:54] LABS: Influenza A PCR NEGATIVE (Negative); Influenza B PCR NEGATIVE (Negative); Resp Syncy Virus RNA Qual PCR NEGATIVE (Negative); SARS COV2 PCR INHOUSE NEGATIVE (Negative)
== END 2020-07-09 23:17 | disposition home or self-care (01) ==
LOC: HO.LAB 23:16
PROVIDERS: Visit Provider Internal Medicine
DX: Z20.822 Contact with and (suspected) exposure to COVID-19 (principal)
CPT/HCPCS: 0241U; 36415

== ENCOUNTER 2020-11-04 14:08 | Day surgery (SDC) | payer BC, SELFPAY ==
[2020-11-04 14:16] VITALS: BP 129/88; PULSE 90; RESP 18; TEMP 36.5; O2SAT 97; BMI 27.0
--- NOTE | 2020-11-04 14:34 | PC.NURSE ---
report given to august pt moved to pacu 14 nad
--- NOTE | 2020-11-04 15:01 | MHC.SHP ---
Pre-Procedural Eval Section A Date of Service: 11/04/20 Section B Chief Complaint: Altered bowel habit, Rectal Pain Details of Present Illness: several months of rectal pain, abdominal discomfort and altered bowel habit, gaseous symptoms Relevant Family History (Specify if Yes): No Relevant Social History: None Present Medications: see Short Stay Collaborative assessment Medical History: Significant History (sarcoidosis, tubular adenoma of colon) History of Previous Operations: Relevant previous surgery/procedure and date(s) (colonsocopy, bronchoscopy) Allergies: Allergies Allergy/AdvReac Type Severity Reaction Status Date / Time Sulfa (Sulfonamide Allergy Unknown DIARRHEA Verified 03/09/20 20:56 Antibiotics) [SULFA (SULFONAMIDE ANTIBIOTICS)] Iodinated Contrast Media AdvReac Unknown stomach Verified 03/18/20 09:24 [IV CONTRAST] upset Sulfa Allergy Unknown Unknown Uncoded 03/09/20 20:56 sulfa drugs Allergy Unknown Unknown Uncoded 03/09/20 20:56 Review of Systems Sugical H&P ROS: Negative: Constitution, Cardiovascular, Respiratory, Neurological, Psychiatric, Hem-Onc, Allergic/Immunologic, Gastrointestinal, Genitourinary, Musculoskeletal, Integumentary, Endocrine and Eyes/Ears/Nose/Throat Exam Surgical H&P Exam: Normal: HEENT, Normal: Heart, Normal: Lungs, Normal: Extremities, Normal: Abdomen, Normal: Skin and Normal: Neurological Plan Diagnosis/Plan: Unchanged I have reviewed the history and physical and performed a pertinent physical examination on my patient. No changes have occurred unless specified. EGD and colonoscopy for further evlauation.
--- NOTE | 2020-11-04 15:02 | P.CONAN_ITS ---
[facility] Past Medical History Medical History Sarcoidosis Social History Social History Alcohol intake: never Patient Tobacco Use Status: Never used Tobacco Use of substances other than those prescribed or required for medical reasons: No Have you been hit, kicked, punched, or otherwise hurt by someone within the past year? If so, by whom?: No Are you DNR?: No Advance Directives: No Advance Directives Information Provided: Yes Recently lost weight without trying: No Nutrition Risks: No Nutritional Risk Meds Allergies Allergy/AdvReac Type Severity Reaction Status Date / Time Sulfa (Sulfonamide Allergy Unknown DIARRHEA Verified 03/09/20 20:56 Antibiotics) [SULFA (SULFONAMIDE ANTIBIOTICS)] Iodinated Contrast Media AdvReac Unknown stomach Verified 03/18/20 09:24 [IV CONTRAST] upset Sulfa Allergy Unknown Unknown Uncoded 03/09/20 20:56 sulfa drugs Allergy Unknown Unknown Uncoded 03/09/20 20:56 Exam Exam Date and Time: November 04, 2020 1502 Height,Weight and Vital Signs: Height 5 ft 9 in Weight 83 kg Last Vital Signs Temp 97.7 F 11/04/20 14:16 Pulse 90 11/04/20 14:16 Resp 18 11/04/20 14:16 BP 129/88 11/04/20 14:16 Pulse Ox 97 11/04/20 14:16 Airway Mallampati Class: II TM Dist: >3cm Loose/Missing/Broken Teeth: No Heart: RRR Lungs: CTA Assessment and Plan Assessment Anesthesia Assessment: Anesthesia Plan Discussed and Chart Reviewed Final Anesthetic Review NPO: Yes ASA Class: II Final Preanesthetic Review: Meds/Allgs Chart Reviewed, Consent Obtained/Reviewed and Anes Risks/Benef Reviewed Patient Risk: Low Procedure Risk: Intermediate Anesthetic Plan Anesthetic Plan: MAC: Disposition: Standard PACU
--- NOTE | 2020-11-04 15:10 | PM.OP ---
Brief Operative Note Date of Service: 11/04/20 Pre-op diagnosis: sarcoidosis, altered bowel habit, rectal pain Post-op diagnosis: same Procedure: see op note Surgeon: Aldair Diaz MD Anesthesia: MAC Was an Medical Collections Representative used for this Procedure?: No Estimated blood loss (mL): 0 Condition: stable Disposition: PACU
--- NOTE | 2020-11-04 15:14 | W.PM.OPN ---
Operative Note Operative Note Date of Service: 11/04/20 Narrative: Operative Information Procedure Description: EGD, Colonoscopy FLEXIBLE TRANSORAL UPPER GASTROINTESTINAL ENDOSCOPY AND COLONOSCOPY PROCEDURE NOTE UPPER ENDOSCOPY Consent: Indications for the procedure and potential complications of bleeding, perforation, reaction to medications and missed diagnosis were discussed with the patient and informed consent was obtained. Instrument: Olympus GIF H 190 J mid size upper endoscope Monitoring: Vital signs and clinical assessment, continuous EKG monitoring, Pulse oximetry, Carbon Dioxide monitoring and blood pressure monitoring were done throughout the procedure. Procedure: The patient was placed in the left lateral decubitis position and pre-procedure medications were administered and a bite block was placed. The endoscope was inserted into the mouth and advanced under direct vision to the third part of duodenum. A careful inspection was made as the upper endoscope was withdrawn including a retroflexed examination of the proximal stomach; Findings and interventions are described below. Findings: Larynx:normal Esophagus: GE junction at 38 cm, diaphragm hiatus at 38 cm, LA grade A esophagitis noted, bx taken from GRJ and random esophagus in separate jars Stomach: erosive gastritis noted at antrum. Biopsies were obtained. Grade 2 flap valve on retroflexed examination of the cardia. Duodenum: Normal bulb and descending duodenum, bx taken Intervention: Biopsies as noted above COLONOSCOPY Instrument: Olympus variable stiffness adult scope 190L Colonoscopy Monitoring: Vital signs and clinical assessment, continuous EKG monitoring, Pulse oximetry, Carbon Dioxide monitoring and blood pressure monitoring were done throughout the procedure. Colon withdrawal time was 12 minutes. Procedure: The patient was placed in the left lateral decubitis position and pre-procedure medications were administered. After a digital rectal examination of the ano-rectum, the video colonoscope was inserted into the rectum and advanced through the colon to the cecum/TI. The colonoscope was slowly withdrawn in a retrograde panoramic fashion and the colon mucosa was carefully examined including a retroflexed view of the rectum. Findings and interventions are described below. Procedure Difficulty:easy Findings: Terminal Ileum-normal, bx taken colon bx taken from right colon, and left/transverse in separate jars Cecum:normal apart from sessile polyp 5-7 mm removed with forceps Ascending Colon: normal Transverse Colon -normal Descending Colon:normal Sigmoid Colon: normal Rectum: Retroflexion with moderate sized internal hemorrhoids, grade I Anorectum - normal Colon preparation: [place] Bowel Preparation Scale Right colon; 3 Transverse colon: 3 Left colon; 3 (0 = Unprepared colon segment with mucosa not seen due to solid stool that cannot be cleared. 1 = Portion of mucosa of the colon segment seen, but other areas of the colon segment not well seen due to staining, residual stool and/or opaque liquid. 2 = Minor amount of residual staining, small fragments of stool and/or opaque liquid, but mucosa of colon segment seen well. 3 = Entire mucosa of colon segment seen well with no residual staining, small fragments of stool or opaque liquid) Impression and Post Procedure Diagnosis: Endoscopy Findings: esophagitis erosive gastritis Colonoscopy Findings: polyp internal hemorrhoids Plan: Await Pathology results Repeat Colonoscopy in 5-7 years if adenomatous, 10 yrs if hyperplastic or earlier if clinically indicated High fiber diet leaflet avoid straining at stool, epsom salts and sitz bath, anusol supps or cream trial of TCA for proctalgia if h plyori pos treat Above findings were reviewed with the patient and relevant handouts were provided if indicated.
[2020-11-04 15:50] VITALS: BP 112/62; PULSE 88; RESP 15; TEMP 36.4; O2SAT 99
[2020-11-04 16:06] VITALS: BP 105/70; PULSE 80; RESP 18; O2SAT 95
== END 2020-11-04 17:00 | disposition home or self-care (01) ==
PROVIDERS: Visit Provider Internal Medicine Gastroenterology
PROC: (CPT 45380; principal; 2020-11-04 15:20)
DX: R19.4 Change in bowel habit (principal); K62.89 Other specified diseases of anus and rectum; D86.9 Sarcoidosis, unspecified; D12.0 Benign neoplasm of cecum; K64.0 First degree hemorrhoids; K29.80 Duodenitis without bleeding; K29.60 Other gastritis without bleeding; K20.80 Other esophagitis without bleeding; K44.9 Diaphragmatic hernia without obstruction or gangrene; Z88.2 Allergy status to sulfonamides
CPT/HCPCS: 45380; 43239; 88305; 88342

== ENCOUNTER → 2020-11-12 09:45 | Outpatient (BNVA) | payer BC, SELFPAY | PROVIDERS: Visit Provider Physician Assistant ==

== ENCOUNTER 2020-11-13 09:47 | Outpatient (REF) | payer BC, SELFPAY ==
[2020-11-14 14:41] LABS: H Pylori Breath Test NOT DETECTED (NOT DETECTED)
== END 2020-11-13 09:48 | disposition home or self-care (01) ==
LOC: HO.LNP 09:47
PROVIDERS: Internal Medicine Gastroenterology; Visit Provider Physician Assistant
DX: Z87.19 Personal history of other diseases of the digestive system (principal)
CPT/HCPCS: 83013

== ENCOUNTER 2022-05-03 21:54 | Emergency (ER) | payer BC, SELFPAY ==
--- NOTE | ~2022-05-03 | XR_ITS ---
EXAMINATION: XR ANKLE, RIGHT CLINICAL INFORMATION: Pain COMPARISON: None TECHNIQUE: AP, lateral, and mortise views of the right ankle. FINDINGS: No acute fracture or dislocation. The mortise is felt to be intact. There does appear to be a joint effusion. No bony erosion is seen. XR/XR ankle RT 2V IMPRESSION: No acute fracture or dislocation. There does appear to be a joint effusion.
--- NOTE | ~2022-05-03 | US_ITS ---
EXAMINATION: US VENOUS ULTRASOUND WITH DOPPLER LOWER EXTREMITY, RIGHT CLINICAL INFORMATION: Chest pain, edema COMPARISON: None TECHNIQUE: Ultrasound of the deep veins is performed from the hip to the calf with compression sonography and color and pulse Doppler assessment. Spectral analysis with color-flow imaging is performed. FINDINGS: There is normal venous compression and respiratory variation and augmented flow. The visualized common femoral vein, superficial femoral vein, profunda femoral vein, popliteal vein, and the trifurcation region shows no evidence of deep venous thrombosis. There is no significant popliteal fossa cyst. If the patient's symptoms persist, followup ultrasound in 5 days 7 days might be of value to exclude proximal propagation from a non-visualized calf vein. US/US venous duplex LE RT IMPRESSION: No DVT demonstrated in the right lower extremity.
[2022-05-03 22:11] VITALS: BP 149/97; PULSE 111; RESP 18; TEMP 36.8; O2SAT 99; BMI 28.5
--- NOTE | 2022-05-03 22:18 | ED.EXTPRO ---
HPI - Extremity Problem General Chief complaint: Extremity Injury, Lower Stated complaint: edema in foot Time Seen by Provider: 05/03/22 21:59 Source: patient Mode of arrival: ambulatory Limitations: no limitations History of Present Illness HPI Narrative: Patient with history of sarcoidosis comes here for swelling of the right ankle for last 2 days atraumatic painful right lateral malleolus and Achilles area spreading to the calf no significant shortness of breath patient taking acetazolamide for his eye condition patient intake in today history of anxiety+ Related Data Previous Rx's Medication Instructions Recorded doxycycline hyclate 100 mg capsule 100 mg PO BID #20 caps 03/10/20 ciprofloxacin HCl 500 mg tablet 500 mg PO BID #20 tabs 03/18/20 (Cipro) doxycycline hyclate 100 mg capsule 100 mg PO BID #20 caps 03/18/20 sodium,potassium,mag sulfates 17.5 See Rx Instructions PO .COMPLEX 10/28/20 gram-3.13 gram-1.6 gram oral soln #354 mL (Suprep Bowel Prep Kit) nortriptyline 10 mg capsule 10 mg PO BEDTIME #90 caps 02/28/21 pantoprazole 40 mg tablet,delayed 40 mg PO DAILY #60 tabs 02/28/21 release alprazolam 0.5 mg tablet 0.5 mg PO BEDTIME PRN anxiety #30 04/14/22 tabs hydrochlorothiazide 25 mg tablet 25 mg PO QAM #30 tabs 04/14/22 propranolol 20 mg tablet 20 mg PO BID #60 tabs 04/14/22 Allergies Allergy/AdvReac Type Severity Reaction Status Date / Time Sulfa (Sulfonamide Allergy Unknown DIARRHEA Verified 03/09/20 20:56 Antibiotics) [SULFA (SULFONAMIDE ANTIBIOTICS)] Sulfa Allergy Unknown Unknown Uncoded 03/09/20 20:56 sulfa drugs Allergy Unknown Unknown Uncoded 03/09/20 20:56 Review of Systems Review of Systems: Yes all other systems are reviewed and are negative PMFSH Past Medical History Medical History Sarcoidosis Social History Social History Alcohol intake: never Patient Tobacco Use Status: Never used Tobacco Advance Directives: No Advance Directives Information Provided: No Physical Exam Vital Signs: Vital Signs: Last Vital Signs Temp 98.3 F 05/03/22 22:11 Pulse 111 H 05/03/22 22:11 Resp 18 05/03/22 22:11 BP 149/97 H 05/03/22 22:11 Pulse Ox 99 05/03/22 22:11 O2 Del Method 05/03/22 22:11 BMI result Body Mass Index 28.5 Appearance: Alert. Oriented X3. No acute distress. Eyes: No pallor or icterus ENT: Pharynx normal. Oral Mucosa moist Neck: Normal inspection. Neck supple. CVS: Normal heart rate and rhythm. Pulses normal. Respiratory: No respiratory distress. Equal air entry bilateral, no wheezing/rales/rhonchi Abdomen: Soft and nontender. Bowel sounds are present, no mass palpable, no CVA tenderness Skin: Skin warm and dry. Normal skin color. Normal skin turgor. Extremities: Right lateral malleolus tender with edema deep calf tenderness Neuro: Oriented X 3. Medical Decision Making Medical Decision Making [facility] Narrative: Patient with right ankle pain with swelling x-ray showed slight effusion lab workup showed elevated CRP and uric acid patient does have psoriasis may be the cause for that patient advised to take NSAIDs and follow-up with PCP Lab Data [facility] Lab Attestation statement: I reviewed the patient's lab results. 05/03/22 22:36 05/03/22 22:36 Labs: Lab Results 05/03/22 05/03/22 05/03/22 Range/Units 22:36 22:36 22:36 WBC 7.5 (4.8-10.8) X10*3/uL RBC 6.10 H (4.60-5.80) X10*6/uL Hgb 17.6 (14.0-18.0) g/dl Hct 51.0 (42.0-52.0) % MCV 83.6 (80.0-98.0) fL MCH 28.9 (27.0-33.0) pg MCHC 34.5 (31.0-36.0) g/dl RDW 12.8 (11.0-16.0) % Plt Count 228 (160-400) X10*3/uL MPV 9.4 (9.4-12.4) fL Immature Gran % (Auto) 0.3 (0.0-0.4) % Neut % (Auto) 65.2 (45-73) % Lymph % (Auto) 23.7 (20-40) % Sharp % (Auto) 8.2 (2-11) % Eos % (Auto) 2.3 (0-4) % Baso % (Auto) 0.3 (0-2) % Lymph # (Auto) 1.8 (1.2-4.9) X10*3/uL Sharp # (Auto) 0.6 (0.1-1.2) X10*3/uL Eos # (Auto) 0.2 (0.0-0.4) X10*3/uL Baso # (Auto) 0.0 (0.0-0.2) X10*3/uL Abs Immat Gran (auto) 0.02 (0.00-0.03) X10*3/uL Absolute Neuts (auto) 4.9 (2.0-8.3) x10*3/uL Absolute Nucleated RBC 0.000 (0.0-0.012) X10*3/uL Nucleated RBC % (auto) 0.0 (0.0-0.2) /100WBC Sodium 140 (135-145) mmol/L Potassium 3.9 (3.3-5.1) mmol/L Chloride 104 (96-108) mmol/L Carbon Dioxide 27 (22-29) mmol/L Anion Gap 13 (12-20) BUN 12 (9-16) mg/dL Creatinine 1.15 (0.5-1.4) mg/dL Estim Creat Clear Calc 99.1 Estimated GFR > 60 Random Glucose 125 H (60-115) mg/dL Uric Acid 9.5 H (3.4-7.0) mg/dL Calcium 9.6 D (8.4-10.2) mg/dL Troponin I High Sens (<3.5-35.0) ng/L C-Reactive Protein 4.04 H (< or = 0.50) mg/dL B-Natriuretic Peptide < 10 (<100) pg/mL 05/03/22 Range/Units 22:39 WBC (4.8-10.8) X10*3/uL RBC (4.60-5.80) X10*6/uL Hgb (14.0-18.0) g/dl Hct (42.0-52.0) % MCV (80.0-98.0) fL MCH (27.0-33.0) pg MCHC (31.0-36.0) g/dl RDW (11.0-16.0) % Plt Count (160-400) X10*3/uL MPV (9.4-12.4) fL Immature Gran % (Auto) (0.0-0.4) % Neut % (Auto) (45-73) % Lymph % (Auto) (20-40) % Sharp % (Auto) (2-11) % Eos % (Auto) (0-4) % Baso % (Auto) (0-2) % Lymph # (Auto) (1.2-4.9) X10*3/uL Sharp # (Auto) (0.1-1.2) X10*3/uL Eos # (Auto) (0.0-0.4) X10*3/uL Baso # (Auto) (0.0-0.2) X10*3/uL Abs Immat Gran (auto) (0.00-0.03) X10*3/uL Absolute Neuts (auto) (2.0-8.3) x10*3/uL Absolute Nucleated RBC (0.0-0.012) X10*3/uL Nucleated RBC % (auto) (0.0-0.2) /100WBC Sodium (135-145) mmol/L Potassium (3.3-5.1) mmol/L Chloride (96-108) mmol/L Carbon Dioxide (22-29) mmol/L Anion Gap (12-20) BUN (9-16) mg/dL Creatinine (0.5-1.4) mg/dL Estim Creat Clear Calc Estimated GFR Random Glucose (60-115) mg/dL Uric Acid (3.4-7.0) mg/dL Calcium (8.4-10.2) mg/dL Troponin I High Sens < 3.5 (<3.5-35.0) ng/L C-Reactive Protein (< or = 0.50) mg/dL B-Natriuretic Peptide (<100) pg/mL Discharge Plan Discharge Clinical Impression: Inflammatory arthritis Patient Disposition: Home, Self-Care Instructions: Low Purine Diet (ED), Gout (ED), Arthritis (ED) Additional Instructions: Rest your right foot Ibuprofen for pain Follow-up with educational audiologist about the psoriasis as this could be the cause for hyperuricemia Low purine diet decrease high-protein/meat/sweet food Prescriptions: No Action Suprep Bowel Prep Kit 17.5-3.13-1.6 gram recon soln See Rx Instructions PO .COMPLEX Qty: 354 0RF Rx Instructions: DILUTE;drink half 6-8 pm and half 10 pm -12 am nortriptyline 10 mg capsule 10 mg PO BEDTIME Qty: 90 1RF pantoprazole 40 mg tablet,delayed release (DR/EC) 40 mg PO DAILY Qty: 60 3RF doxycycline hyclate 100 mg capsule 100 mg PO BID Qty: 20 0RF ciprofloxacin HCl [Cipro] 500 mg tablet 500 mg PO BID Qty: 20 0RF doxycycline hyclate 100 mg capsule 100 mg PO BID Qty: 20 0RF alprazolam 0.5 mg tablet 0.5 mg PO BEDTIME PRN (Reason: anxiety) Qty: 30 0RF propranolol 20 mg tablet 20 mg PO BID Qty: 60 0RF hydrochlorothiazide 25 mg tablet 25 mg PO QAM Qty: 30 0RF Interventions: ED Discharge Assessment Last Done: 05/03/22 23:39 Discharge Date/Time: 05/03/22 23:39
--- OUTSIDE RECORDS SUMMARY | 2022-05-03 22:21 | XMS_ITS ---
:1990 Author Care Team Providers Name Role Phone JENNIFER MAYS MD Primary Care Provider [phone] SAI BCCOREY OTHER [phone] Allergies Code Code System Name Reaction Severity Status Onset Sulfa (Sulfonamide Antibiotics) ? ? Active ? Medications Name Status Start Date Stop Date ? ? ciprofloxacin 500 mg tablet Completed ? 04/2020 TAKE 1 TABLET BY MOUTH TWICE A DAY desoximetasone 0.25 % topical ointment Completed ? 08/17/2020 APPLY TWICE DAILY TO PSORIASIS ON TRUNK & EXTREMITIES ,MAX 2WKS ON, 1WK OFF. CAN REPEAT doxycycline hyclate 100 mg capsule Completed ? 08/17/2020 TAKE 1 CAPSULE BY MOUTH TWICE A DAY doxycycline hyclate 100 mg tablet Completed ? 08/17/2020 TAKE 1 TABLET BY MOUTH TWICE A DAY naproxen 500 mg tablet Completed ? TAKE 1 TABLET TWICE DAILY Problems None recorded. Procedures None recorded. Results Lab Results Date Name Specimen Result Interpretation Description Value Range Status Address ? 08/17/2020 SARS-CoV-2 N Gene ? No observation ? ? ? [place]ota QL, JUANPABLO + Probe recorded. [facility], - Dept Of Nasopharynx Labor atory And Pathology Services: [address] [place] [address] Past Encounters None recorded. Social History Tobacco Smoking Status Never Smoker Vaccine List None recorded. Plan of Care Reminders Provider Appointments None recorded. ? ? Lab None recorded. ? ? Referral None recorded. ? ? Procedures None recorded. ? ? Surgeries None recorded. ? ? Imaging None recorded. ? ? Vitals Blood Pressure 126/72 mm[Hg]
[2022-05-03 22:41] LABS: MANUAL DIFF FLAG NO
[2022-05-03 22:43] LABS: Basophils Percent Auto 0.3 % (0-2); Eosinophils Absolute Auto 0.2 X10*3/uL (0.0-0.4); Eosinophils Percent Auto 2.3 % (0-4); Hemoglobin 17.6 g/dl (14.0-18.0); Imm Gran Abs Auto 0.02 X10*3/uL (0.00-0.03); Imm Gran Pct Auto 0.3 % (0.0-0.4); Lymphocytes Absolute Auto 1.8 X10*3/uL (1.2-4.9); Lymphocytes Percent Auto 23.7 % (20-40); Mean Corpuscular HGB Conc 34.5 g/dl (31.0-36.0); Mean Corpuscular Hemoglobin 28.9 pg (27.0-33.0); Mean Corpuscular Volume 83.6 fL (80.0-98.0); Mean Platelet Volume 9.4 fL (9.4-12.4); Monocytes Absolute Auto 0.6 X10*3/uL (0.1-1.2); Monocytes Percent Auto 8.2 % (2-11); Neutrophils Absolute Auto 4.9 x10*3/uL (2.0-8.3); Neutrophils Percent Auto 65.2 % (45-73); Platelet Count 228 X10*3/uL (160-400); Red Cell Distribution Width 12.8 % (11.0-16.0); White Blood Count 7.5 X10*3/uL (4.8-10.8)
[2022-05-03 23:07] LABS: Anion Gap 13 (12-20); Blood Urea Nitrogen 12 mg/dL (9-16); C Reactive Protein 4.04 mg/dL (< or = 0.50); Calcium 9.6 mg/dL (8.4-10.2); Carbon Dioxide 27 mmol/L (22-29); Chloride 104 mmol/L (96-108); Creatinine Clr Calc Pharmacy 99.1; Estimated Glomerular Filt Rate > 60; Glucose Random 125 mg/dL (60-115); Potassium 3.9 mmol/L (3.3-5.1); Sodium 140 mmol/L (135-145); Uric Acid 9.5 mg/dL (3.4-7.0)
[2022-05-03 23:45] LABS: Troponin-I High Sensitivity < 3.5 ng/L (<3.5-35.0)
[2022-05-04 00:36] LABS: B Type Natriuretic Peptide < 10 pg/mL (<100)
== END 2022-05-03 23:39 | disposition home or self-care (01) ==
PROVIDERS: Emergency Provider Internal Medicine
DX: M19.071 Primary osteoarthritis, right ankle and foot (principal); R07.89 Other chest pain; R60.0 Localized edema; R06.02 Shortness of breath; Z79.899 Other long term (current) drug therapy
CPT/HCPCS: 36415; 73600; 80048; 83880; 84484; 84550; 85025; 86140; 93971; 99282; 99283

== ENCOUNTER 2024-06-01 14:24 | Emergency (ER) | payer BC, SELFPAY ==
--- OUTSIDE RECORDS SUMMARY | 2024-06-01 14:54 | XMS_ITS | Clinical Summary ---
Author Organization [facility] Address [address] [place] [address] Phone Care Team Providers Care Field Support Representative Name Role Phone Aj Gupta MD Primary Care Provider [phone] Allergies Active Allergy Reactions Criticality Noted Date Comments Sulfa (Sulfonamide Antibiotics) Diarrhea,Rash Medium 0 05/27/2016 Medications No known medications Active Problems Problem Noted Date Diagnosed Date Sinus tachycardia 05/31/2024 Sarcoidosis 05/31/2024 Cardiomyopathy 05/31/2024 Obstructive sleep apnea on CPAP 05/31/2024 Short of breath on exertion 05/31/2024 Dizziness 10/08/2022 YANG (dyspnea on exertion) 10/08/2022 Overweight with body mass index (BMI) 25.0-29.9 10/08/2022 Tachycardia, unspecified 10/08/2022 Encounters Date Type Department Care Team Description 05/31/2024 4:00 PM EST Office Visit [facility] Cardiology [address] [id number] Carson Garner MD Cardiomyopathy, unspecified type (CMS/HCC) (Primary Dx); Sarcoidosis; Sinus tachycardia; Obstructive sleep apnea on CPAP; Short of breath on exertion from Last 3 Months Medical History Medical History Date Comments Psoriasis DX:Psoriasis 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 Colon polyp DX:Colon polyp Sarcoidosis DX:Sarcoidosis Erythema nodosum DX:Erythema nod osum Non-caseating granuloma DX:Non-c aseating granuloma Family History Medical History Relation Name Comments Obesity Brother Valvular heart disease Brother Angina Father Coronary artery disease Father PTCA Heart disease Father Cardiomyopathy Mother Takatsubo Relation Name Status Comments Brother Alive Father Alive Mother Alive Social History Tobacco Use Types Packs/Day Years Used Date Smoking Tobacco: Never Smokeless Tobacco: Never Alcohol Use Standard Drinks/Week Comments Never 0 (1 standard drink = 0.6 oz pur e alcohol) Sex and Gender Information Value Date Recorded Sex Assigned at Not on file Legal Sex Male 9:15 PM EST Gender Identity Not on file Sexual Orientation Not on file Obstetrics History Last Filed Vital Signs Vital Sign Reading Time Taken Comments Blood Pressure 126/92 05/31/2024 4:30 PM EST Pulse 86 05/31/2024 4:30 PM EST Temperature - - Respiratory Rate - - Oxygen Saturation 97% 05/31/2024 4:30 PM EST Inhaled Oxygen Concentration - - Weight 87.1 kg (192 lb) 05/31/2024 4:30 PM EST Height 175.3 cm (5' 9 ) 05/31/2024 4:30 PM EST Body Mass Index 28.35 05/31/2024 4:30 PM EST Plan of Treatment Upcoming Encounters Date Type Department Care Team (Late st Contact Info) Description 07/05/2024 3:45 PM EDT Ancillary Procedure [facility] [address] [place] [address] [address] [place] [address] 09/05/2024 4:30 PM EDT Office Visit [facility] [address] [facility] [address] [place] [id number] Carson Garner MD [address] [place] [address] [address] [place] [address] Health Maintenance Due Date Last Done Comments DTaP,Tdap,and Td Vaccines (1 - Tdap) 01/18/2007 Hepatitis B Vaccines (1 of 3 - 19+ 3-dose series) 01/18/2007 Cholesterol Screening (Lipid Panel) 03/21/2022 Depression Screening 03/21/2022 HIV Screening 03/21/2022 Hepatitis C Screening 03/21/2022 Social Influencers of Health Screening 03/21/2022 COVID-19 Vaccine (3 - 2023-2 5 season) 2023 11/12/2021, 02/26/2021 Influenza Vaccine (#1) 2023 HIB Vaccines Aged Out No longer eligi ble based on patient's age to complete this topic HPV Vaccines Aged Out No longer eligi ble based on patient's age to complete this topic Hepatitis A Vaccines Aged Out No long er eligible based on patient's age to complete this topic IPV Vaccines Aged Out No longer eligi ble based on patient's age to complete this topic MMR Vaccines Aged Out No longer eligi ble based on patient's age to complete this topic Meningococcal ACWY Vaccine Aged Out N o longer eligible based on patient's age to complete this topic Meningococcal B Vacine Aged Out No lo nger eligible based on patient's age to complete this topic Pneumococcal Vaccine: Pediatrics (0 to 5 Years) and At-Risk Patients (6 to 64 Years) Aged Out No longer eligible b ased on patient's age to complete this topic RSV Immunization Patients Under 20 months Aged Out No longer eligible b ased on patient's age to complete this topic Varicella Vaccines Aged Out No longer eligible based on patient's age to complete this topic Procedures Procedure Name Priority Date/Time Associated Diagnosis Comments ECG 12-LEAD Routine 05/31/2024 4:32 PM EST Cardiomyopathy, unspecified type (CMS/HCC) Sarcoidosis Sinus tachycardia Obstructive sleep apnea on CPAP Short of breath on exertion from Last 3 Months Results * ECG 12 lead (05/31/2024 4:32 PM EST) Narrative Carson Garner MD - 05/31/2024 4:32 PM EST Sinus rhythm 86 bpm, nonspecific ST-T changes. us Carson Garner MD ECG ORDERABLES Final Result from Last 3 Months Insurance ([facility]) Care Teams Field Support Representative Relationship Specialty Start Date End Date Aj Gupta MD [address] [place] [address] PCP - General 10/08/22
--- OUTSIDE RECORDS SUMMARY | 2024-06-01 14:54 | XMS_ITS | Data Portability ---
Author Organization [place] [facility], [facility] Address [address] [address] Assessment Encounter Date Assessment Date Assessment LastModified by Organization Details LastModified Time 08/17/2020 08/17/2020 Overview/History : 30 year old male pmh significant for sarcoidosis presents with complaints of shortness of breath, dry cough, diarrhea, and nightsweats. He and his family did return from [place] 4 days ago when they also began to have these symptoms. He desires Covid-19 testing. He denies fever, chest, nausea/vomiting, or loss of taste/smell. He is tolerating food and fluids well. Exam: Constitutional: yWell developed, well nourished, pleasant patient in no apparent distress. Eyes: PERRL at 4mm, EOM's intact, No swelling, no discharge, sclera / conjunctiva clear ENT: No nasal discharge, no erythema/ exudate noted in oropharynx, moist mucous membranes, no lymphadenopathy CV: Normal HR, no rubs/ murmurs/ gallops heard, 2+ radial pulses bilaterally, no edema, 2+ DP/ PT pulses bilaterally Pulm: breath sounds clear and equal bilaterally, no wheeze/ rhonchi or rales on auscultation. Speaks in full sentences, no increased work of breathing. GI: Soft, non-tender to palpation. No masses, normal bowel sounds. : No CVA tenderness bilaterally. MS: Self ambulatory patient, moves all limbs without deficit, no evidence of trauma Neuro: No focal deficits, patient GCS- 456, CN? s II-XII grossly normal Skin: No rash Psych: Calm, cooperative, non-manic DDx considered, but not limited to: Covid-19 given the patients body aches, cough, SOB, and recent travel. URI/COLD-given the patients body aches, cough, and SOB. Work up/Results: Rapid Covid-19 Test Negative Plan/Discussion: Covid-19 PCR Swab sent to the lab. Patient is aware results may take 1-3 days. Report to ER for fever unrelieved by antipyretics, worsening of SOB, chest pain, weakness, fatigue, or change in LOC. In order to obtain further information and compare any laboratory results/values, I have accessed patient records on the [employer]. This information was pertinent in my medical decision making today. Proper Personal Protective Equipment (PPE), including gloves, eye protection, N95 mask, gown were donned and doffed appropriately and all equipment cleaned using approved technique with germicidal disposable wipes prior to and after care of this patient according to [facility]'s infection prevention protocols. Time On Scene with Patient: 00:55:36 Not available 08/17/2020 17:17:33 Plan of Treatment Reminders Order Date Submit Date Provider Last Modified By Organization Details Last Modified Time Details Appointments None recorded. Lab rapid SARS CoV + SARS CoV 2 Ag, QL IA, respiratory specimen 2020 021 [email or web address] 659 [facility], [address] [place] [address], [address], [place], [address], 16:23:35 SARS-CoV-2 N gene QL, JUANPABLO + probe detection, nasopharynx 2020 021 [facility], [facility]. Dept [facility], [address] [place] [address], [phone], 05:37:28 Referral None recorded. Procedures None recorded. Surgeries None recorded. Imaging None recorded. Medication Orders None recorded. Patient TargetsNo targets recorded. Patient Instructions Encounter Date Encounter Id Patient Instructions Last Modified By Organization Details Last Modified Time 08/17/2020 [id number] What is coronavirus disease 2019? Coronavirus disease 2019 (COVID-19) is a respiratory illness that can spread from person to person. The virus that causes COVID-19 is a novel coronavirus that was first identified during an investigation into an outbreak in [facility]. Can I get COVID-19? Yes. COVID-19 is spreading from person to person in parts of the world. Risk of infection from the virus that causes COVID-19 is higher for people who are close contacts of someone known to have COVID-19, for example household members. Other people at higher risk for infection are those who live in or have recently been in an area with ongoing spread of COVID-19. How does COVID-19 spread? The virus that causes COVID-19 probably emerged from an animal source, but is now spreading from person to person. The virus is thought to spread mainly between people who are in close contact with one another (within about 6 feet) through respiratory droplets produced when an infected person coughs or sneezes. It also may be possible that a person can get COVID-19 by touching a surface or object that has the virus on it and then touching their own mouth, nose or possibly their eyes, but this is not thought to be the main way the virus spreads. What are the symptoms of COVID-19? Patients with COVID-19 have mild to severe respiratory illness with symptoms of: fever cough shortness of breath What are severe complications from this virus? Some patients have pneumonia in both lungs, multi-organ failure and in some cases . People can help protect themselves from respiratory illness with everyday preventative actions. Avoid close contact with people who are sick. Avoid touching your eyes, nose, and mouth with unwashed hands. Wash your hands often with soap and water for at least 20 seconds. Use an alcohol-based hand yarn weigher that contains at least 60% alcohol if soap and water are not available If you are sick, to keep from spreading respiratory illness to others, you should Stay home when you are sick. Cover your cough or sneeze with a tissue, then throw the tissue in the trash. Clean and disinfect frequently touched objects and surfaces. Is there a treatment? There is no specific antiviral treatment for COVID-19. People with COVID-19 can seek medical care to help relieve symptoms. FOR MORE INFORMATION: [email or web address] Not available 08/17/2020 16:19:16 Reason for Referral None Reported. Results Created Date Observation Date Name Description Value Unit Range Abnormal Flag Note LastModifiedBy Organization Detail LastModifiedTime 08/18/19 21 08/17/2020 rapid SARS CoV + SARS CoV 2 Ag, QL IA, respi rator y speci men Covid-19 negati ve Not Available Hrt - Home [address] [place] [address], [place], [address], 08/17/2020 16:12:52 08/18/19 21 08/17/2020 rapid SARS CoV + SARS CoV 2 Ag, QL IA, respi rator y speci men Control Visual ized/V alid Not Available Hrt - Home [address], [place], [address], 08/17/2020 16:12:52 Result Notes None recorded. Medical Equipment None Reported. Allergies Allergen ID Allergen Name Allergen Category Reaction Reaction Severity Criticality Documentation Date Start Date Code Code System Note Provider Name and Address Organization Details Recorded Time 498210 Substance with sulfonami de structure and antibacte rial mechanism of action (substanc e) medicatio n Not available Not available Not available 08/17/2020 [id number] SNOMED Ann Ruvalcaba NP [address] [place] [address], [phone], [place] [facility] 16:08:42 Medications Name Sig Start Date Stop Date Status Note LastModified by Organization Details LastModified Time doxycycline hyclate 100 mg capsule TAKE 1 CAPSULE BY MOUTH TWICE A DAY 08/17 completed Not Available Not Available Not Available ciprofloxac in 500 mg tablet TAKE 1 TABLET BY MOUTH TWICE A DAY 08/17 completed Not Available Not Available Not Available desoximetas one 0.25 % topical ointment APPLY TWICE DAILY TO PSORIASIS ON TRUNK& EXTREMITI ES ,MAX 2WKS ON, 1WK OFF. CAN REPEAT 08/17 completed Not Available Not Available Not Available doxycycline hyclate 100 mg tablet TAKE 1 TABLET BY MOUTH TWICE A DAY 08/17 completed Not Available Not Available Not Available naproxen 500 mg tablet TAKE 1 TABLET TWICE DAILY 08/17 completed Not Available Not Available Not Available Vitals Date Recorded Heart rate Oxygen saturation Oxygen saturation in Arterial blood by Pulse oximetry Respiratory rate Body temperature Systolic blood pressure Diastolic blood pressure Provider Name and Address Organization Details Last Updated DateTime 92 /min 97 % 97 % 20 /min 97.1 [degF] 126 mm[Hg] 72 mm[Hg] Not Available [facility] 16:12:20 Social History Question Answer Notes LastModified by Organizat ion Details LastModified Time Tobacco Smoking Status Never Smoker Ann Ruvalcaba NP [address] [place] [address] [address], [place], [address], [place] [facility] 08/17/2020 16:10:30 Excessive Alcohol Or Drug Use No [email or web address] Information not available 08/17/2020 Sex: Unknown Functional Status None recorded. Mental Status None recorded. Family History Relationship Description Onset Age of this Age Resolved Age Notes LastModified by Organization Details LastModified Time Father No current problems or disability [email or web address] Not available 16:11:02 Mother No current problems or disability [email or web address] Not available 16:11:02 Medical History Condition Response Diabetes N Coronary Artery Disease N Cancer N Stroke N Depression N COPD N Asthma N High Cholesterol N Pulmonary Embolism N Hypertension N Kidney Disease N Past Encounters Encounter ID Performer Location Encounter Start Date Encounter Closed Date Diagnosis/Indication Diagnosis SNOMED-CT Code Diagnosis ICD10 Code Diagnosis Note [id number] Ann Ruvalcaba NP [facility] - HOME [address] [place] [address] 08/17/2020 16:03:46 08/19/2020 16:17:20 Suspected COVID-19 694426665 Z03.89 Health Concerns Section Related Observation LastModified by Organization Detai ls LastModified Time None Recorded Concern Status LastModified by Organization Details LastModified Time None Recorded Advance Directives Directive None Recorded Payers Encounter Date Sequence Insurance Name Policy Number Policy Mclain Covered Member ID Mclain Member ID Guarantor Name 08/17/2020 1 [place]I GRAHAM (PPO) [id number] Pippa Dennison [id number] Pippa Dennison Notes Date Note Type Note Provider Name and Address Organization Details Recorded Time 08/17/2020 text/html 30 year old male pmh significant for sarcoidosis presents with complaints of shortness of breath, dry cough, diarrhea, and nightsweats. He and his family did return from [place] 4 days ago when they also began to have these symptoms. He desires Covid-19 testing. He denies fever, chest, nausea/vomiting, or loss of taste/smell. He is tolerating food and fluids well. Ann Ruvalcaba NP [address] [place] [address], [address], [place] [facility] 08/17/2020 17:17:46
--- OUTSIDE RECORDS SUMMARY | 2024-06-01 14:54 | XMS_ITS | Clinical Summary ---
Author Organization [facility] Address [address] [place] [address] Care Team Providers Care Harnessmaker Name Role Phone Dejon Lima MD Primary Care Provider [phone] Allergies Active Allergy Reactions Criticality Noted Date Comments Sulfa Antibiotics 09/08/2021 Medications Clobetasol Propionate (TEMOVATE) 0.05 % external solution 50 0 02/26/2022 Active Desonide (DESOWEN) 0.05 % cream 60 0 02/26/2022 Active Active Problems Problem Noted Date Diagnosed Date Obstructive sleep apnea 12/29/2021 Snoring 09/08/2021 Upper airway resistance syndrome 09/08/2021 Sarcoidosis 09/08/2021 Witnessed episode of apnea 09/08/2021 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 Immunizations Name Administration Dates Next Due COVID-19, mRNA (Moderna Pre Fall 2022) Monovalent, 100 mcg/0.5 ml or 50 mcg/0.25 ml dose 11/12/2021 Social History Tobacco Use Types Packs/Day Years Used Date Smoking Tobacco: Never Assessed Comments:Smoking Status:Non- smoker Sex and Gender Information Value Date Recorded Sex Assigned at Not on file Legal Sex Male 9:30 PM EDT Gender Identity Not on file Sexual Orientation Not on file Last Filed Vital Signs Vital Sign Reading Time Taken Comments Blood Pressure 126/72 09/08/2021 4:19 PM EDT Pulse 116 09/08/2021 4:19 PM EDT Temperature - - Respiratory Rate - - Oxygen Saturation 97% 09/08/2021 4:19 PM EDT Inhaled Oxygen Concentration - - Weight 86.2 kg (189 lb 15.9 oz) 09/08/2021 4:19 PM EDT Height 175.3 cm (5' 9 ) 09/08/2021 4:19 PM EDT Body Mass Index 28.06 09/08/2021 4:19 PM EDT Plan of Treatment Health Maintenance Due Date Last Done Comments Hepatitis C Screening 1988 DTaP/Tdap/Td (1 - Tdap) 01/18/2006 Hep B (1 of 3 - 19+ 3-dose series) 01/18/2007 COVID-19 Vaccine (2 - 2023-2 5 season) 2023 11/12/2021 Influenza (#1) 2023 Zoster (Shingrix) (1 of 2) 01/18/2038 HPV Vaccine Aged Out No longer eligi ble based on patient's age to complete this topic Hep A Aged Out No longer eligi ble based on patient's age to complete this topic Hib Aged Out No longer eligi ble based on patient's age to complete this topic Meningococcal ACWY Aged Out No longer eligible based on patient's age to complete this topic Pneumococcal Aged Out No longer eligi ble based on patient's age to complete this topic Care Teams Harnessmaker Relationship Specialty Start Date End Date Dejon Lima MD [address] [place] [address] PCP - General 11/23/22
--- OUTSIDE RECORDS SUMMARY | 2024-06-01 14:55 | XMS_ITS | Clinical Summary ---
Author Organization [facility] Address [address] [place] [address] Care Team Providers Care Apron Trimmer Name Role Phone Flip Motley MD Primary Care Provider [phone] Social History Tobacco Use Types Packs/Day Years Used Date Smoking Tobacco: Never Assessed Comments Unknown Sex and Gender Information Value Date Recorded Sex Assigned at Not on file Legal Sex Female 1:40 PM EDT Gender Identity Not on file Sexual Orientation Not on file Plan of Treatment Upcoming Encounters Date Type Department Care Team (Late st Contact Info) Description 07/14/2024 9:45 AM EDT Office Visit [facility] Department of Dermatology [address] [place] [address] Dionisio Prado MD PhD [address] [place] [address] Health Maintenance Due Date Last Done Comments HIV Screening 1988 DTaP,Tdap,and Td Vaccines (1 - Tdap) 01/18/2006 Hepatitis C Screening 01/18/2006 Hepatitis B Vaccines (1 of 3 - 19+ 3-dose series) 01/18/2007 Pap Smear 01/18/2009 Cervical Cancer Screening 01/18/2018 HPV/Cotest 01/18/2018 COVID-19 Vaccine (2 - 2023-2 5 season) 2023 11/12/2021 Influenza Vaccine (#1) 2023 Zoster Vaccines (1 of 2) 01/18/2038 HPV Vaccines Aged Out No longer eligi ble based on patient's age to complete this topic Hepatitis A Vaccines Aged Out No long er eligible based on patient's age to complete this topic MMR Vaccines Aged Out No longer eligi ble based on patient's age to complete this topic Meningococcal Vaccine Aged Out No migel srinivasan eligible based on patient's age to complete this topic Pneumococcal Vaccine: Pediat rics (0 to 5 Years) and At-Risk Patients (6 to 64 Years) Aged Out No longer eligi ble based on patient's age to complete this topic Insurance [employer] - [employer] Care Teams Apron Trimmer Relationship Specialty Start Date End Date Flip Motley MD . [address] [place] [address] PCP - General Internal Medicine 12/08/21
--- OUTSIDE RECORDS SUMMARY | 2024-06-01 14:55 | XMS_ITS | Clinical Summary ---
Author Organization [facility] Address [address] [place] [address] Care Team Providers Care Practice Lead Name Role Phone Aj Gupta MD Primary Care Provider Unavaila ble Allergies Active Allergy Reactions Criticality Noted Date Comments Latex Itching,Rash Low 06/01/2016 Sulfa Antibiotics Diarrhea,Rash Medium 05/27/2016 Medications No known medications Active Problems Problem Noted Date Diagnosed Date Sarcoidosis 10/08/2022 YANG (dyspnea on exertion) 10/08/2022 Dizziness 10/08/2022 Overweight with body mass index (BMI) 25.0-29.9 10/08/2022 Family history of premature CAD 10/08/2022 Tachycardia, unspecified 10/08/2022 Family History Medical History Relation Name Comments Obesity Brother Valvular heart disease Brother Angina Father Coronary artery disease Father PTCA Heart disease Father Cardiomyopathy Mother Takatsubo Relation Name Status Comments Brother Alive Father Alive Mother Alive Social History Tobacco Use Types Packs/Day Years Used Date Smoking Tobacco: Never Smokeless Tobacco: Never Tobacco Cessation:Counseling Given: Not Answered Alcohol Use Standard Drinks/Week Comments Never 0 (1 standard drink = 0.6 oz pur e alcohol) Sex and Gender Information Value Date Recorded Sex Assigned at Not on file Gender Identity Not on file Sexual Orientation Not on file Job Start Date Occupation Industry Not on file Not on file Not on file Last Filed Vital Signs Vital Sign Reading Time Taken Comments Blood Pressure 120/72 03/22/2023 3:26 PM EST Pulse 86 03/22/2023 3:26 PM EST Temperature - - Respiratory Rate - - Oxygen Saturation 99% 03/22/2023 3:26 PM EST Inhaled Oxygen Concentration - - Weight 85.3 kg (188 lb) 03/22/2023 3:26 PM EST Height 175.3 cm (5' 9 ) 03/22/2023 3:26 PM EST Body Mass Index 27.76 03/22/2023 3:26 PM EST Plan of Treatment Health Maintenance Due Date Last Done Comments Hepatitis B Vaccines (1 of 3 - 3-dose series) 1988 Hepatitis C Screening 1988 COVID-19 Vaccine (#1) 1988 Depression Screening 2000 BMI Counseling 01/18/2006 Preventative Health Evaluation 01/18/2006 DTap / Tdap / Td (1 - Tdap) 01/18/2007 Influenza Vaccine (#1) 2023 Pneumococcal Vaccine Aged Out No long er eligible based on patient's age to complete this topic RSV Ped < 20 months Aged Out No longe r eligible based on patient's age to complete this topic Care Teams Practice Lead Relationship Specialty Start Date End Date Aj Gupta MD PCP - General Emergency Medicine 10/08/22
--- OUTSIDE RECORDS SUMMARY | 2024-06-01 14:55 | XMS_ITS | Clinical Summary ---
Author Organization [facility] Address [address] [place] [address] Care Team Providers Care Information Services Manager Name Role Phone Jaxson Dennison MD Primary Care Provider [phone] Allergies Active Allergy Reactions Criticality Noted Date Comments Latex Itching,Rash/Dermatitis Low 06/01/2016 Sulfa Antibiotics Diarrhea,Rash/Dermatitis Medium 11/2016 Medications No known medications Active Problems No known active problems Encounters Date Type Department Care Team Description 06/01/2024 Scanned Document [address] [place] [phone] Primary Care, Scan from Last 3 Months Social History Tobacco Use Types Packs/Day Years Used Date Smoking Tobacco: Never Smokeless Tobacco: Never Sex and Gender Information Value Date Recorded Sex Assigned at Not on file Gender Identity Not on file Sexual Orientation Not on file Last Filed Vital Signs Vital Sign Reading Time Taken Comments Blood Pressure 124/88 04/21/2020 4:08 PM EST Pulse 116 04/21/2020 4:08 PM EST Temperature 36.8 ??C (98.2 ??F) 04/21/2020 4:08 PM ES T Respiratory Rate - - Oxygen Saturation 96% 04/21/2020 4:08 PM EST Inhaled Oxygen Concentration - - Weight 81 kg (178 lb 9.2 oz) 04/21/2020 4:08 PM EST Height 175.3 cm (5' 9 ) 04/21/2020 4:08 PM EST Body Mass Index 26.37 04/21/2020 4:08 PM EST Plan of Treatment Health Maintenance Due Date Last Done Comments Hepatitis C Virus Screening 1988 HIV Screening 01/18/2001 DTaP/Tdap/Td Vaccines (1 - Tdap) 01/18/2007 Hepatitis B Vaccines (1 of 3 - 19+ 3-dose series) 01/18/2007 Influenza Vaccine 11/18/2023 COVID-19 Vaccine (2023-2 5 season) 2023 HPV Vaccines Aged Out No longer eligi ble based on patient's age to complete this topic Pneumococcal Vaccine: Pediat divina (0-5 Years) and At-Risk Patients (6 to 49 Years) Aged Out No longer eligible b ased on patient's age to complete this topic Procedures Procedure Name Priority Date/Time Associated Diagnosis Comments HX OUTSIDE ORDER 06/01/2024 from Last 3 Months Results * OUTSIDE ORDER (06/01/2024) Scan Primary Care HX AMB PROCEDURES from Last 3 Months Care Teams Information Services Manager Relationship Specialty Start Date End Date Jaxson Dennison MD [address] [place] [address] PCP - General Internal Medicine 03/18/20
--- OUTSIDE RECORDS SUMMARY | 2024-06-01 14:55 | XMS_ITS | Encounter Summary ---
Author Organization [facility] Address [address] [place] [address] Care Team Providers Care Flow Trader Name Role Phone Jaxson Dennison MD Primary Care Provider [phone] Encounter Details Date Type Department Care Team (Late st Contact Info) Description 06/01/2024 Scanned Document [address] [place] [phone] Primary Care, Scan Social History Tobacco Use Types Packs/Day Years Used Date Smoking Tobacco: Never Smokeless Tobacco: Never Sex and Gender Information Value Date Recorded Sex Assigned at Not on file Gender Identity Not on file Sexual Orientation Not on file documented as of this encounter Plan of Treatment Not on file documented as of this encounter Procedures Procedure Name Priority Date/Time Associated Diagnosis Comments HX OUTSIDE ORDER 06/01/2024 documented in this encounter Results * OUTSIDE ORDER (06/01/2024) Scan Primary Care HX AMB PROCEDURES documented in this encounter Visit Diagnoses Not on filedocumented in this encounter Care Teams Flow Trader Relationship Specialty Start Date End Date Jaxson Dennison MD [address] [place] [id number] PCP - General Internal Medicine 03/18/20 documented as of this encounter
--- OUTSIDE RECORDS SUMMARY | 2024-06-01 14:55 | XMS_ITS ---
Author Name [facility] Organization Unknown Results Test Name/Text Value Interpretation Date Range Source ANGIOTENSIN CONVERTING ENZYME 41.4U/L Normal [id number] 9 - 67 [facility] C-REACTIVE PROTEIN 0.8mg/dL Normal [id number] - 1 [facility] SED RATE 2MM/HR Normal [id number] 0 - 15 [facility] H WBC 5.3K/uL Normal [id number] 3.7 - 10.3 [facility] MH ABSOLUTE GRANULOCYTES 2.9K/uL Normal [id number] 2.2 - 7.3 [facility] ABSOLUTE BASO 0.1K/uL Normal [id number] 0 - 0.2 [facility] RBC 5.63M/uL Normal [id number] 4.3 - 6 [facility] H IMMATURE GRANULOCYTES 0% Normal [id number] 0 - 0 .45 [facility] EOSINOPHILS 1% Normal [id number] 0 - 6 [facility] MMH MPV 10fL Normal [id number] 8 - 12 [facility] H ABSOLUTE MONOS 0.5K/uL Normal [id number] 0.2 - 1.5 [facility] BASOPHILS 1% Normal [id number] 0 - 2 [facility] H NUCLEATED RBC 0% Normal [id number] 0 - 0.2 [facility] MCV 86fL Normal [id number] 83 - 102 [facility] H MCH 29PG Normal [id number] 27 - 34 [facility] HCT 48.3% Normal [id number] 40 - 52 [facility] H ABSOLUTE LYMPHS 1.8K/uL Normal [id number] 1.5 - 4.9 C [facility] GRANULOCYTES 54% Normal [id number] 23 - 78 [facility] MONOCYTES 10% Normal [id number] 0 - 12 [facility] H ABSOLUTE EOS 0.1K/uL Normal [id number] 0 - 0.7 [facility] LYMPHS 34% Normal [id number] 16 - 50 [facility] H ABSOLUTE IMMATURE GRANULOCYTES 0K/uL Normal [id number] 0 - 0.3 [facility] HGB 16.5g/dL Normal [id number] 13.5 - 18 [facility] RDW 12.8% Normal [id number] 11.1 - 13.3 [facility] MMH PLATELET COUNT 193K/uL Normal [id number] 150 - 480 [facility] MCHC 34.2g/dL Normal [id number] 31 - 36 [facility] ABSOLUTE NUCLEATED RBC 0K/uL Normal [id number] 0 - 0.012 [facility] History of Medication Use Medication Directions Dispensed Refills Start Date End Date Stat us Otezla 30 MG TABS 09/16/2022 03/22/2023 aborted Allergies Allergen Reaction Severity Comment Documented Date Source Statu s [facility] Problems Problem Status Onset Date Problem Type Date of Resoluti on Source Tachycardia, unspecified active 2022-10-08 ProblemAct [facility] YANG (dyspnea on exertion) active 2022-10-08 ProblemAct [facility] Dizziness active 2022-10-08 ProblemAct [facility] Overweight with body mass index (BMI) 25.0-29.9 active 2022-10-08 ProblemAct [facility] Sarcoidosis active 2022-10-08 ProblemAct [facility] Family history of premature CAD active 2022-10-08 ProblemAct [facility]
--- OUTSIDE RECORDS SUMMARY | 2024-06-01 14:55 | XMS_ITS | Encounter Summary ---
Author Organization [facility] Address [address] [place] [address] Care Team Providers Care Loan Workout Officer Name Role Phone Aj Gupta MD Primary Care Provider [phone] Reason for Referral * Imaging (Routine) - Pending Review Specialty Diagnoses / Procedures Referred By Robe damon Referred To Contact Cardiology Diagnoses Cardiomyopathy, unspecified type (CMS/HCC) Sarcoidosis Sinus tachycardia Obstructive sleep apnea on CPAP Short of breath on exertion Procedures Transthoracic echocardiogram (TTE) complete with PRN contrast, bubble, strain, and 3D order panel UT TTE W 2D IMAGE COMPLETE W DOPPLER ECHO & COLOR FLOW DOPPLER ECHO UT TYSHAWN 2D COMPLETE W/CONTRAST OR W & WO CONTRAST WITH DOPPLER Carson Ganrer MD [address] [place] [id number] Phone: tel: fax: [facility] [place] Referral ID Status Reason Start Date Expiration Date V isits Requested Visits Authorized [id number] Pending Review 05/31/2024 05/31/2025 1 1 Encounter Details Date Type Department Care Team (Late st Contact Info) Description 05/31/2024 4:00 PM EST Office Visit [facility] - [address] [phone] Carson Garner MD [address] [place] [id number] Cardiomyopathy, unspecified type (CMS/HCC) (Primary Dx); Sarcoidosis; Sinus tachycardia; Obstructive sleep apnea on CPAP; Short of breath on exertion Social History Tobacco Use Types Packs/Day Years [...] on file documented as of this encounter Last Filed Vital Signs Vital Sign Reading [...] Mass Index 28.35 05/31/2024 4:30 PM EST documented in this encounter Patient Instructions * Attachments The following attachments cannot be sent through Care Everywhere. * Diet: DASH (Nicaraguan) * Mediterranean Diet: General Info ([place]icaraguan) * Blood Pressure Test: Home ([place]icaraguan) documented in this encounter Progress Notes * Carson Garner MD - 05/31/2024 4:00 PM EST Images from the original note were not included. [facility], [facility] SUBJECTIVE: The patient comes in for a follow-up urgently, he has significant family history of premature coronary artery disease, obstructive sleep apnea, is overweight, has hyperlipidemia, central serous chorioretinopathy, unspecified tachycardia has dyspnea of exertion. He has noticed that he has been having left-sided headache during intercourse. He has been traveling for past few weeks and has not been able to follow the diet and has been taking high animal-based food and sodium rich food. He was seen in my office in March 2023 and has had no follow-up since then. OBJECTIVE: Vitals: height is 1.753 m (69 ) and weight is 87.1 kg (192 lb). His blood pressure is 126/92 (abnormal) andhis pulse is 86. His oxygen saturation is 97%. Body mass index is 28.35 kg/m??. Review of system: ?Cardiovascular ?Neurological ? - + [x] [] Chest Discomfort [x] [] Palpitations [x] [] Fainting [] [x] High Blood Pressure [] [x] Shortness of Breath [x] [] Cholesterol [x] [] Orthopnea or PND [x] [] Edema - + [x] [] Numbness [x] [] Visual Disturbance [x] [] Weakness [x] [] Vertigo [x] [] Sleep Disorder [x] [] Speech [x] [] Seizure - + [] [] Impotence [] [] Urinary Frequency [] [] Incontinence [] [] Menstrual Irregularity [] [] Bloody Urine [] [] Painful Urination ?Respiratory ?Musculoskeletal ?GI - + [x] [] Cough [x] [] Hemoptysis [x] [] Difficulty Breathing [x] [] Pleuritic Pain [x] [] Fever [x] [] Wheezing - + [] [x] Swollen or Painful Joints [x] [] Claudication [x] [] Edema [x] [] Myalgia [x] [] Injury - + [] [] Indigestion [] [] Pain [] [] Bloody Stools [] [] Constipation [] [] Diarrhea ?Eyes ?E-N-T ?Endocrine - + [x] [] Blurred Vision [x] [] Double Vision [x] [] Amaurosis - + [x] [] Nose Bleed [x] [] Difficulty Swallowing [x] [] Difficulty Hearing [x] [] Tinnitus - + [] [] Diabetes [] [] Weight Gain [] [] Weight Loss [] [] Hyperthyroid ?Head ?Neck ?Skin - + [x] [] Jaw Pain [x] [] Headache [x] [] Injury - + [x] [] Swelling [x] [] Pain - + [] [] Rash [] [] Itching [] [] Bruising ?Psychiatric ?Allergies - + [x] [] Depression [x] [] Anxiety - + [] [] Environmental [] [] Drug [] No Change since 02/19/2014 Comments: [] Past Medical History Reviewed: Past Medical History: Diagnosis Date 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 Family / Social History Reviewed: Family History Problem Relation Name Age of Onset Cardiomyopathy Mother Takatsubo Heart disease Father Angina Father Coronary artery disease Father 50 [employer] Obesity Brother Valvular heart disease Brother Social History Socioeconomic History Marital status: Spouse name: Not on file Number of children: Not on file Years of education: Not on file Highest education level: Not on file Occupational History Not on file Tobacco Use Smoking status: Never Smokeless tobacco: Never Substance and Sexual Activity Alcohol use: Never Drug use: Never Sexual activity: Not on file Other Topics Concern Not on file Social History Narrative Not on file Allergies Reviewed: Not on File Scheduled Medications Reviewed: No current outpatient medications on file. No current facility-administered medications for this visit. Physical Exam: *Eyes Arcus Negative ?Xanthelasma Negative ?Lid Lag Negative ?Exopthalmus Negative ?Conjuntivae Normal ?Fundi Not examined Comments: *Ears, Nose, Mouth and Throat ?Teeth/Dentures Normal ?Mucosa: Pallor Negative ?Cyanosis Negative Comments: *Neck ?Thyroid [x] Normal [] Enlarged []Nodules ?Jugular Veins Normal Comments: *Respiratory ?A-P Diam Normal Effort: [x] Normal Lungs Clear to auscultation and percussion Comments: *Cardiovascular ?Palpation PMI Normal Lift Negative Thrill Negative ?Auscultation Rhythm [x] Regular Murmur Negative [] S1 Normal S2 Normal S3 Negative S4 Negative Click Negative Examination of ?Carotids (R) Normal (L) Normal[] Bruits None ?Abdominal aorta Normal [] Bruits Negative [] ?Femoral (R) 4/4 (L) 4/4 Bruits Negative ?Radial arteries (R) 4/4 (L) 4/4 ?Pedal pulses DP (R) 4/4 (L) 4/4 PT (R) 4/4 (L) 4/4 ?Edema Negative Varicosities Negative Comments: *Gastrointestinal ?Examination of ?Abdomen Soft, active bowel sounds, nontender ?Liver Not palpable Spleen Not palpable ?[] Obtain Stool sample (Patients who are considered for thrombolytic and anticoagulant therapy) Comments: *Musculoskeletal ?Back: Kyphosis Negative [] Scoliosis Negative ?Gait Normal Tendons Normal ?Muscle Strength Normal Comments: *Extremities ?Nails Normal Clubbing Negative Lesions Negative Cyanosis Negative Edema Negative Comments: *Skin ?Stasis dermatitis Negative Xanthomas Negative Ulcers Negative Comments: *Neurological ?Orientation X3 DTR Normal Gait Normal ?Mood Normal [] Strength Normal Comments: Labs Reviewed: No results found for: WBC , HGB , HCT , PLT , CHOL , TRIG , HDL , LDLDIRECT , ALT , AST , NA , K , CL , CREATININE , BUN , CO2 , TSH , PSA , INR , GLUF , HGBA1C , MICROALBUR Diagnostics Data Reviewed: Encounter Date: 05/31/24 ECG 12 lead Narrative Sinus rhythm 86 bpm, nonspecific ST-T changes. Exercise stress test: December 14, 2022 A stress test was performed following the Rodolfo protocol. The patient developed non-limiting angina during exercise. The Nava Treadmill Risk Score is 7. Patient is at low risk for cardiovascular events. CT calcium score without intravenous contrast. October 08, 2022 INDICATION: Family history of coronary artery disease. ?? Axial CT scan the coronary arteries was done without intravenous contrast with quantification coronary calcium. ?? The coronary calcium score is zero. ?? Visualized lungs, pleural spaces, mediastinum and chest wall show no pathology ?? CONCLUSION: The calcium score is 0. Cardiac monitoring: October 08, 2022-October 22, 2022 (Zio XT) ?? During 13 days and 23 hours of cardiac monitoring the underlying predominant rhythm remains sinus with minimum heart rate of 47 bpm and maximal heart rate of 151 beats minute with an average of 93bpm. Isolated rare PACs, supraventricular couplets were noted. No ventricular ectopy was noted. Impression: Predominantly sinus rhythm with intermittent sinus bradycardia and sinus tachycardia and rare PACs. Cardiac MRI: March 18, 2023 Mild global LV hypokinesia with low normal LVEF of 45%. No dysplasia or abnormal late myocardial enhancement. Tests Ordered: [x] Chem-18, lipid profile annually. Assessment: Patient is a 34 y.o. male who has significant family history of premature coronary artery disease, sarcoidosis, obstructive sleep apnea on CPAP, he is overweight, has hyperlipidemia, central serous chorioretinopathy, unspecified tachycardia has dyspnea of exertion and palpitations with occasional dizziness remains hemodynamically stable, high-dose Xa tetanus status, has zero coronary calcium score and cardiac monitoring was not significant for any arrhythmias. The patient's cardiac MRI is p significant for cardiomyopathy without infiltrative disease. The most likely reason for patient's headache during intercourse is probably due to elevated blood pressure. Plan: Patient will be continued on current medications. Patient was advised to follow Mediterranean DASH diet, monitor his blood pressure regularly and if symptoms persist with normal blood pressure he must follow-up with neurologist otherwise he may benefit from antihypertensive therapy. Chem-18, lipid profile annually. Risk stratification, lifestyle modifications were discussed and recommended. Patient was advised to reduce caloric intake, observe portion controlled strictly, avoid sodium andsalt intake, exercise a regular basis to reduce weight for optimization of BMI for cardiovascular preventive purposes. Patient was encouraged to increase high-fiber diet with increase intake of fruits and vegetables, olive oil, beans, nuts, legumes as tolerated unless contraindicated in in the dietand avoid processed food/carbonated beverages for preventive purposes. Patient was advised to call us to check on his blood work-up or other diagnostic studies if not hear back from us to discuss the results and findings and plan of care. Patient has no regular permanent primary care provider, patient was advised to find a primary care provider PETE. Follow-up in 2-3 months or earlier if patient develops new symptoms or current symptoms get worse provided patient's blood pressure readings remain normal. Carson Garner MD., FACC., FASNC., FCPS., FACP. [facility], [facility] [phone]. 4:24 PM EST05/31/2024 This dictation was performed using voice recognition software. Word substitution may have occurred and may have gone unnoticed and uncorrected. documented in this encounter Plan of Treatment Upcoming Encounters Date Type Department Care Team (Late st Contact Info) Description 07/05/2024 3:45 PM EDT Ancillary Procedure [facility] - [place] [address] [facility] [address] [place] [phone] 09/05/2024 4:30 PM EDT [facility] Visit [facility] - [address] [place] [phone] Carson Garner MD [address] [place] [address] [address] [place] [address] Scheduled Orders Name Type Priority Associated Diagnoses Order Schedule Comprehensive metabolic panel Lab Routine Cardiomyopathy, unspecified type (CMS/HCC) Sarcoidosis Sinus tachycardia Obstructive sleep apnea on CPAP Short of breath on exertion 1 Occurrences starting 05/31/2024 until 05/31/2025 Lipid panel Lab Routine Cardiomyopathy, unspecified type (CMS/HCC) Sarcoidosis Sinus tachycardia Obstructive sleep apnea on CPAP Short of breath on exertion 1 Occurrences starting 05/31/2024 until 05/31/2025 Thyroid stimulating hormone Lab Routine Cardiomyopathy, unspecified type (CMS/HCC) Sarcoidosis Sinus tachycardia Obstructive sleep apnea on CPAP Short of breath on exertion 1 Occurrences starting 05/31/2024 until 05/31/2025 Transthoracic echocardiogram (TTE) complete with PRN contrast, bubble, strain, and 3D order panel Echocardiography Routine Cardiomyopathy, unspecified type (CMS/HCC) Sarcoidosis Sinus tachycardia Obstructive sleep apnea on CPAP Short of breath on exertion 1 Occurrences starting 05/31/2024 until 05/31/2025 documented as of this encounter Procedures Procedure Name Priority Date/Time Associated Diagnosis Comments ECG 12-LEAD Routine 05/31/2024 4:32 PM EST Cardiomyopathy, unspecified type (CMS/HCC) Sarcoidosis Sinus tachycardia Obstructive sleep apnea on CPAP Short of breath on exertion documented in this encounter Results * ECG 12 lead (05/31/2024 4:32 PM EST) Narrative Carson Garner MD - 05/31/2024 4:32 PM EST Sinus rhythm 86 bpm, nonspecific ST-T changes. us Carson Garner MD ECG ORDERABLES Final Result documented in this encounter Visit Diagnoses Diagnosis Cardiomyopathy, unspecified type (CMS/HCC)- Primary Sarcoidosis Sinus tachycardia Other specified cardiac dysrhythmias Obstructive sleep apnea on CPAP Short of breath on exertion documented in this encounter Care Teams Loan Workout Officer Relationship Specialty Start Date End Date Aj Gupta MD [address] [place] [address] PCP - General 10/08/22 documented as of this encounter
== END 2024-06-01 14:59 | disposition left against medical advice (07) ==
PROVIDERS: Emergency Provider Emergency Medicine
DX: R51.9 Headache, unspecified (principal)